=== PATIENT | male | born 1970 | race Caucasian/White ===

== ENCOUNTER 2020-05-27 19:50 | Inpatient (IN) ==
--- OUTSIDE RECORDS SUMMARY | 2020-05-27 19:53 | External Medical Summary | Continuity of Care Document ---
:1970 Author Name Darling You, Provider Address Unavailable Unavailable , Care Team Providers Name Role Phone Unavailable Unavailable Unavailable PCP, UNKNOWN Unavailable Unavailable Problems Active medical history not documented Allergies and Adverse Reactions Allergy history not documented Medications Medications not documented Procedures Procedures not documented Immunizations Immunizations not documented Plan of Treatment Planned Observations Planned Goals not documented Results No Known Results Results not documented
[2020-05-27] MEDS ORDERED: SODIUM CHLORIDE 0.9% 1000ML 1,000 ML IV STA (20:28)
--- NOTE | 2020-05-27 20:47 | Emergency Department Note ---
History of Present Illness General Chief complaint: Illness Stated complaint: COVID Time Seen by Provider: 05/27/20 20:19 Source: patient Mode of arrival: ambulatory Limitations: no limitations History of Present Illness Maximum Pain Intensity: 0 This patient comes in after having worsening of Covid type symptoms. He was diagnosed at [facility] in [place] this past Saturday his symptoms started 1 week ago. He started with low-grade temperature and diarrhea still has some diarrhea. He did have some respiratory symptoms but got better then got worse today after he had a coughing spell. He was mildly hypoxemic in triage with O2 sat of 89% he has no underlying illnesses otherwise or lung disease. He is not sure he has been keeping up with his fluids. He has no chest pain. No trauma or injury. Home Medications Medication Instructions Recorded Confirmed Type benzonatate 100 mg PO TID PRN 05/27/20 05/27/20 History Allergies Allergy/AdvReac Type Severity Reaction Status Date / Time No Known Allergies Allergy Verified 05/27/20 21:33 Past Med/Surg History Social History Smoking Status: Never smoker Feels Safe at Home: Yes Immunizations: Past medical historydenies pulmonary disease or diabetes or other lung problems or chronic medical problems social history does not smoke Review of Systems A total of 10 systems reviewed and were otherwise negative Physical Exam Vital Signs Vital Signs - 24 hr 05/27/20 19:53 05/27/20 20:54 05/27/20 21:00 Temperature 36.9 C Temperature Source Temporal Artery Scan Pulse Rate 88 77 76 Pulse Rate from SpO2 Sensor 77 76 Respiratory Rate 20 21 21 Blood Pressure 133/86 Blood Pressure Mean 101 Pulse Oximetry 89 L 92 92 Oxygen Delivery Method Room Air Room Air Oxygen Flow Rate Sepsis Recent Fever Within 48 Hours No Sepsis New/Unexplained Change in Mental Status N/A Sepsis Action Taken by Nursing No Action Required 05/27/20 21:10 05/27/20 21:20 05/27/20 21:30 Temperature Temperature Source Pulse Rate 75 74 88 Pulse Rate from SpO2 Sensor 77 75 88 Respiratory Rate 23 23 Blood Pressure 154/100 H Blood Pressure Mean 118 Pulse Oximetry 92 93 Oxygen Delivery Method Oxygen Flow Rate Sepsis Recent Fever Within 48 Hours Sepsis New/Unexplained Change in Mental Status Sepsis Action Taken by Nursing 05/27/20 21:31 05/27/20 21:40 05/27/20 21:50 Temperature Temperature Source Pulse Rate 83 78 83 Pulse Rate from SpO2 Sensor 84 79 83 Respiratory Rate 23 19 22 Blood Pressure Blood Pressure Mean Pulse Oximetry 90 93 93 Oxygen Delivery Method Oxygen Flow Rate Sepsis Recent Fever Within 48 Hours Sepsis New/Unexplained Change in Mental Status Sepsis Action Taken by Nursing 05/27/20 22:00 05/27/20 22:10 05/27/20 22:20 Temperature Temperature Source Pulse Rate 82 80 80 Pulse Rate from SpO2 Sensor 82 80 79 Respiratory Rate 24 27 H Blood Pressure Blood Pressure Mean Pulse Oximetry 92 93 94 Oxygen Delivery Method Oxygen Flow Rate Sepsis Recent Fever Within 48 Hours Sepsis New/Unexplained Change in Mental Status Sepsis Action Taken by Nursing 05/27/20 22:30 05/27/20 22:40 05/27/20 22:50 Temperature Temperature Source Pulse Rate 89 86 85 Pulse Rate from SpO2 Sensor 89 85 86 Respiratory Rate 21 24 25 H Blood Pressure Blood Pressure Mean Pulse Oximetry 95 93 93 Oxygen Delivery Method Oxygen Flow Rate Sepsis Recent Fever Within 48 Hours Sepsis New/Unexplained Change in Mental Status Sepsis Action Taken by Nursing 05/27/20 22:52 05/27/20 23:00 05/27/20 23:01 Temperature Temperature Source Pulse Rate 84 80 80 Pulse Rate from SpO2 Sensor 84 80 79 Respiratory Rate 22 21 20 Blood Pressure 129/76 140/85 Blood Pressure Mean 93 103 Pulse Oximetry 92 94 94 Oxygen Delivery Method Nasal Cannula Nasal Cannula Oxygen Flow Rate 2 2 Sepsis Recent Fever Within 48 Hours Sepsis New/Unexplained Change in Mental Status Sepsis Action Taken by Nursing 05/27/20 23:30 05/27/20 23:50 Temperature Temperature Source Pulse Rate 84 86 Pulse Rate from SpO2 Sensor 84 83 Respiratory Rate 25 H 23 Blood Pressure 132/72 Blood Pressure Mean 92 Pulse Oximetry 91 93 Oxygen Delivery Method Nasal Cannula Nasal Cannula Oxygen Flow Rate 2 3 Sepsis Recent Fever Within 48 Hours Sepsis New/Unexplained Change in Mental Status Sepsis Action Taken by Nursing General: Well developed well nourished middle-age male who appears in no acute distress, breathing comfortably on room air. Normal speech HEENT: Normal cephalic atraumatic. Pupils are equal round and reactive to light. Extraocular movements are intact. Oropharynx is pink with moist mucous membranes. No swelling of the mouth lips or tongue. Neck: Supple with a midline trachea. No meningeal signs or stiffness, no JVD or bruits. No Stridor. Chest: Clear to auscultation bilaterally. No wheezes or rhonchi. No increased work of breathing. Heart: Regular rate and rhythm without murmurs or gallops. Abdomen: Soft nontender, nondistended without rebound guarding or rigidity. Extremities: No cyanosis clubbing or edema. No calf tenderness or assymetry Spine/Back. Non tender to palpation. No CVA tenderness Skin: Good turgor without rashes. Neurologic exam: Cranial nerves two through 12 are intact. Motor and sensation are intact and symmetrical throughout. Course Administered Medications Lactated Ringer's (Lr) 1,000 mls @ 200 mls/hr IV .Q5H ONE Stop: 05/28/20 03:51 Last Admin: 05/27/20 23:48 Dose: 200 mls/hr Documented by: [id number] Discontinued Medications Albuterol (Albuterol Hfa 8 Gm Inhaler) 2 puffs INH NOW ONE Stop: 05/27/20 22:51 Last Admin: 05/27/20 23:46 Dose: 2 puffs Documented by: [id number] Sodium Chloride (Nss 1000ml) 1,000 mls @ 999 mls/hr IV .Q1H1M STA Stop: 05/27/20 21:28 Last Infusion: 05/27/20 22:56 Dose: 0 mls/hr Documented by: [id number] Admin: 05/27/20 21:02 Dose: 999 mls/hr Documented by: [id number] Dexamethasone 6 mg/ Syringe 1.5 mls @ 1 mls/min IV NOW STA Stop: 05/27/20 22:34 Last Admin: 05/27/20 22:51 Dose: 1 mls/min Documented by: [id number] Medical Decision Making Differential Diagnosis Covid, hypoxemia, dehydration, cardiac disease, arrhythmia, CHF, pneumothorax, PE Medical Records Attestation: I reviewed the patient's medical records. Home Medications Current Medication List: was personally reviewed by me Laboratory Data Attestation: I reviewed the patient's lab results. Result diagrams: 05/27/20 20:52 05/27/20 20:52 Lab Results 05/27/20 05/27/20 05/27/20 Range/Units 20:52 20:52 20:52 WBC 5.52 (4.8-10.8) K/uL RBC 5.03 (4.7-6.1) M/uL Hgb 15.4 (14.0-18.0) g/dL Hct 42.6 (42-52) % MCV 84.7 (80-100) fL MCH 30.6 (25-34) pg MCHC 36.2 H (32-36) g/dL RDW Std Deviation 40.7 (36.4-46.3) fL RDW Coeff of Samir 13.1 (11.5-14.5) % Plt Count 142 (130-400) K/uL MPV 10.0 (7.4-10.4) fL Immature Gran % (Auto) 0.4 % Neut % (Auto) 73.5 % Lymph % (Auto) 14.3 % [place] % (Auto) 11.6 % Eos % (Auto) 0.0 % Baso % (Auto) 0.2 % Neut # (Auto) 4.06 (1.4-6.5) K/uL Lymph # (Auto) 0.79 L (1.2-3.4) K/uL [place] # (Auto) 0.64 H (0.11-0.59) K/uL Eos # (Auto) 0.00 (0-0.5) K/uL Baso # (Auto) 0.01 (0-0.2) K/uL Immature Gran # (Auto) 0.02 (0.00-0.02) K/uL D-Dimer 390 (0-500) ug/L FEU ABG pH (7.35-7.45) ABG pCO2 (35-46) mmHg ABG pO2 (80-95) mmHg ABG HCO3 (19-24) mmol/L ABG O2 Saturation (90-95) % ABG Base Excess (-9-1.8) mEq/L Davi Test (Pos) Barometric Pressure mm/Hg Oxygen Given Sodium 135 L (136-145) mmol/L Potassium 3.5 (3.5-5.1) mmol/L Chloride 103 (98-107) mmol/L Carbon Dioxide 26 (21-32) mmol/L Anion Gap 6.0 (3-11) BUN 20 H (7-18) mg/dl Creatinine 1.32 (0.6-1.4) mg/dl Est Cr Clr Drug Dosing 77.4 ml/min Est GFR ( Amer) 73.9 Est GFR (Non-Af Amer) 63.8 BUN/Creatinine Ratio 15.1 (10-20) Glucose 138 H (70-99) mg/dl Calcium 8.3 L (8.5-10.1) mg/dl Magnesium 2.1 (1.8-2.4) mg/dl Total Bilirubin 0.5 (0.2-1) mg/dl AST 96 H (15-37) U/L ALT 109 H (12-78) U/L Alkaline Phosphatase 67 (45-117) U/L Troponin I < 0.015 (0-0.045) ng/ml Total Protein 7.0 (6.4-8.2) gm/dl Albumin 3.2 L (3.4-5.0) gm/dl Globulin 3.8 (2.5-4.0) gm/dl Albumin/Globulin Ratio 0.8 L (0.9-2) Lipase 1308 H (73-393) U/L 05/27/20 Range/Units 23:35 WBC (4.8-10.8) K/uL RBC (4.7-6.1) M/uL Hgb (14.0-18.0) g/dL Hct (42-52) % MCV (80-100) fL MCH (25-34) pg MCHC (32-36) g/dL RDW Std Deviation (36.4-46.3) fL RDW Coeff of Samir (11.5-14.5) % Plt Count (130-400) K/uL MPV (7.4-10.4) fL Immature Gran % (Auto) % Neut % (Auto) % Lymph % (Auto) % [place] % (Auto) % Eos % (Auto) % Baso % (Auto) % Neut # (Auto) (1.4-6.5) K/uL Lymph # (Auto) (1.2-3.4) K/uL [place] # (Auto) (0.11-0.59) K/uL Eos # (Auto) (0-0.5) K/uL Baso # (Auto) (0-0.2) K/uL Immature Gran # (Auto) (0.00-0.02) K/uL D-Dimer (0-500) ug/L FEU ABG pH 7.47 H (7.35-7.45) ABG pCO2 32 L (35-46) mmHg ABG pO2 58 L (80-95) mmHg ABG HCO3 23 (19-24) mmol/L ABG O2 Saturation 92.0 (90-95) % ABG Base Excess 0.2 (-9-1.8) mEq/L Davi Test POS (Pos) Barometric Pressure 734.3 mm/Hg Oxygen Given 2 L Sodium (136-145) mmol/L Potassium (3.5-5.1) mmol/L Chloride (98-107) mmol/L Carbon Dioxide (21-32) mmol/L Anion Gap (3-11) BUN (7-18) mg/dl Creatinine (0.6-1.4) mg/dl Est Cr Clr Drug Dosing ml/min Est GFR ( Amer) Est GFR (Non-Af Amer) BUN/Creatinine Ratio (10-20) Glucose (70-99) mg/dl Calcium (8.5-10.1) mg/dl Magnesium (1.8-2.4) mg/dl Total Bilirubin (0.2-1) mg/dl AST (15-37) U/L ALT (12-78) U/L Alkaline Phosphatase (45-117) U/L Troponin I (0-0.045) ng/ml Total Protein (6.4-8.2) gm/dl Albumin (3.4-5.0) gm/dl Globulin (2.5-4.0) gm/dl Albumin/Globulin Ratio (0.9-2) Lipase (73-393) U/L Imaging Data Attestation: I personally reviewed and interpreted this imaging study as follows: My Impression: Chest x-raydiffuse bilateral infiltrates consistent with bilateral pneumonia/Covid ECG Data Attestation: I personally reviewed and interpreted this ECG as follows: Indication: + SOB/dyspnea and + weakness Rate (beats per minute): 75 Rhythm: + normal sinus ECG Intervals/blocks: + IVCD (Nonspecific interventricular conduction delay with slightly prolonged QRS), + Normal QT and + Normal [place] ECG [place]: + Normal ECG ST segments: + Normal ST segments ECG Findings: no PACs and no PVCs Comparison ECG Date: no prior available MDM Narrative This patient comes in as described above. He was placed monitor in room C5. Given the fact that he does have Covid he was placed on respiratory isolation. Extensive work-up was done. IV access was established and blood work was obtained. Chest x-ray was obtained as well as EKG. He was placed on a teletypesetter monitor. He was hydrated with 1 L IV normal saline bolus. Given his hypoxemia and diagnosis of Covid, he was given Decadron 6 mg IV. His EKG does not suggest acute coronary syndrome or ischemic ischemia. His lipase is elevated at 1300 he has no belly pain at present or tenderness on exam. He is hypoxemic on room air at rest is 89-90 when he coughs he desaturates. Given this plus his extensive infiltrates on x-ray I do think he needs to be admitted/observed. He also has an elevated lipase. I have discussed the case with Dr. Alejandro who saw him in the emergency department for these measures. Giovanny, her telehealth case manager did print out his lab test from [facility] confirming that he does have Covid and this was documented in the chart. Continuous cardiac monitoring: Order was placed in EMR for continuous cardiac monitoring due to his hypoxemia and respiratory symptoms. I have personally interpreted the rhythm strip and it shows normal sinus rhythm with a pulse of 85. Impression & Plan COVID-19, Hypoxemia, Elevated lipase, SOB (shortness of breath), Cough Discharge Plan Visit Data Chief Complaint: Illness Stated Complaint: COVID ED Provider: Gregorio Holcomb Discharge Problem: COVID-19, Hypoxemia, Elevated lipase, SOB (shortness of breath), Cough Forms Stand Alone Forms: My [facility] Prescriptions Prescriptions: No Action benzonatate 100 mg capsule 100 mg PO TID PRN (Reason: Cough) RF: 0
[2020-05-27 21:07] LABS: Basophils # (auto) 0.01 K/uL (0-0.2); Basophils % (auto) 0.2 %; Hematocrit (blood only) 42.6 % (42-52); Hemoglobin 15.4 g/dL (14.0-18.0); Immature Granulocytes # (auto) 0.02 K/uL (0.00-0.02); Immature Granulocytes % (auto) 0.4 %; Lymphocytes # (auto) 0.79 K/uL (1.2-3.4); Lymphocytes % (auto) 14.3 %; Mean Corpuscular Hemoglobin 30.6 pg (25-34); Mean Corpuscular Hgb Conc 36.2 g/dL (32-36); Mean Corpuscular Volume 84.7 fL (80-100); Monocytes # (auto) 0.64 K/uL (0.11-0.59); Monocytes % (auto) 11.6 %; Neutrophils # (auto) 4.06 K/uL (1.4-6.5); Neutrophils % (auto) 73.5 %; Platelet Count 142 K/uL (130-400); RDW Coefficient of Variation 13.1 % (11.5-14.5); RDW Standard Deviation 40.7 fL (36.4-46.3); Red Blood Count 5.03 M/uL (4.7-6.1); White Blood Count 5.52 K/uL (4.8-10.8)
[2020-05-27 21:18] LABS: D Dimer 390 ug/L FEU (0-500)
[2020-05-27 21:25] LABS: Alanine Aminotransferase 109 U/L (12-78); Albumin Level 3.2 gm/dl (3.4-5.0); Aspartate Aminotransferase 96 U/L (15-37); BUN Creatinine Ratio 15.1 (10-20); Blood Urea Nitrogen 20 mg/dl (7-18); Calcium 8.3 mg/dl (8.5-10.1); Carbon Dioxide 26 mmol/L (21-32); Chloride 103 mmol/L (98-107); Creatinine Clr Calc Pharmacy 77.4 ml/min; Est GFR (African American) 73.9; Est GFR (Non-African American) 63.8; Glucose 138 mg/dl (70-99); Lipase 1308 U/L (73-393); Potassium 3.5 mmol/L (3.5-5.1); Sodium 135 mmol/L (136-145)
[2020-05-27 21:30] LABS: Albumin Globulin Ratio 0.8 (0.9-2); Alkaline Phosphatase 67 U/L (45-117); Bilirubin,Total 0.5 mg/dl (0.2-1); Globulin 3.8 gm/dl (2.5-4.0); Troponin I < 0.015 ng/ml (0-0.045)
--- NOTE | 2020-05-27 21:42 | XRay Report ---
XR chest 1V portable HISTORY: 49 years-old Male Chest Pain acute atypical chest pain. COVID Positive. COMPARISON: None TECHNIQUE: Portable AP view of the chest FINDINGS: Cardiac silhouette is enlarged. Mixed interstitial and alveolar opacities, left greater than right. N o pneumothorax or large pleural effusion. Bones appear grossly intact. IMPRESSION: 1. Left greater than right mixed interstitial and alveolar opacities suggests multifocal pneumonia. 2. Cardiomegaly. ACT 112: Negative or not required by law. The above report was generated using voice recognition software. It may contain grammatical, syntax o r spelling errors. Electronically signed by: Elkin Gerardo M.D. 05/27/2020 9:40 PM
[2020-05-27] MEDS ORDERED: dexAMETHasone 6 MG in SYRINGE 0 ML IV STA (22:33)
[2020-05-27] MEDS ORDERED: ALBUTEROL HFA 8 GM INHALER INH ONE (22:50)
[2020-05-27] MEDS ORDERED: LACTATED RINGER'S 1,000 ML IV ONE (22:52)
[2020-05-27 23:01] LABS: Magnesium 2.1 mg/dl (1.8-2.4)
[2020-05-27 23:48] LABS: Allen Test POS (Pos); Base Excess ABG 0.2 mEq/L (-9-1.8); HCO3 ABG 23 mmol/L (19-24); PCO2 ABG 32 mmHg (35-46); PO2 ABG 58 mmHg (80-95); pH ABG 7.47 (7.35-7.45)
--- NOTE | 2020-05-27 23:48 | History & Physical Report ---
Date of Service May 27, 2020 Assessment & Plan (1) Acute hypoxemic respiratory failure: Secondary to severe COVID-19 pneumonia situational hypertension Possible chronic BP elevation given cardiomegaly on CXR Hyperlipasemia secondary to viral diarrheal illness Rule out C. difficile No pancreatitis on initial CT read Abnormal LFTs likely secondary to fatty liver disease Hyperglycemia rule out DM Medical telemetry Supplemental O2 Decadron Remdesivir first dose now. Monitor LFTs after initial dose and defer decision regarding subsequent dosing to AM provider. (Patient was counseled regarding potential adverse effects from Remdesivir therapy and provided with patient education sheet. Patient also agreeable to convalescent plasma if warranted. Verbal consent obtained for blood product administration.) Pulmonary consult if without improvement Monitor BP, initiate amlodipine if persistently elevated Stool C. difficile Check hemoglobin A1c DVT prophylaxis per Lovenox subcu Full code Text document was generated using [employer] voice recognition software. It may contain grammatical or spelling errors. Kindly contact undersigned for clarification of any documentation item in question. History of Present Illness Chief Complaint: Shortness of breath, Covid positive Primary Care Provider: Dr. Butler History obtained from patient and records. No significant medical history. 1 week history of fever, chills, central achy abdominal pain with watery diarrhea symptoms. Poor appetite. Symptoms later followed by dry cough symptoms without chest pain. 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 Outpatient COVID-19 test from 5 days ago turned out positive. Supportive management and isolation recommended by PCP. Patient noted worsening symptoms at home. O2 sats 80s upon arrival at the ER. Patient given Decadron at the ER. 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 Allergies Allergy/AdvReac Type Severity Reaction Status Date / Time No Known Allergies Allergy Verified 05/27/20 21:33 Home Medications Medication Instructions Recorded Confirmed Type benzonatate 100 mg PO TID PRN 05/27/20 05/27/20 History Past Med/Surg History Social History Smoking Status: Never smoker Hx Alcohol Use: No Hx Substance Use: No Preferred Language: [place] Beliefs That Will Affect Care: None Current Living Situation: Family Feels Safe at Home: Yes Safety Concerns: Feels Safe At This Time Assistive Devices: None Review of Systems Review of Systems: As per HPI, all 10 systems reviewed, all other ROS negative Physical Exam Physical Exam: GENERAL: Comfortable, pleasant, looks older than stated age, morbidly obese, no respiratory distress SKIN: Normal color, warm HEENT: Alopecia, pink palpebral conjunctivae, no ptosis, moist buccal mucosa, nasal cannula in place NECK : Supple, short neck, no tenderness CHEST : Decreased breath sounds, scattered crackles on the right, no tenderness HEART : RRR, no obvious murmurs ABDOMEN: Some distention, central abdominal tenderness EXTREMITIES : No LE swelling/tenderness, no other conspicuous deformities noted NEUROLOGIC : Coherent, no facial asymmetry, no other gross focality Results & Data Results & Data ([facility]) Vital Signs (Past 12 Hours) Vital Signs Temp Pulse Resp BP Pulse Ox 05/27/20 23:30 84 25 H 132/72 91 05/27/20 23:01 80 20 94 05/27/20 23:00 80 21 140/85 94 05/27/20 22:52 84 22 129/76 92 05/27/20 22:50 85 25 H 93 05/27/20 22:40 86 24 93 05/27/20 22:30 89 21 95 05/27/20 22:20 80 27 H 94 05/27/20 22:10 80 24 93 05/27/20 22:00 82 92 05/27/20 21:50 83 22 93 05/27/20 21:40 78 19 93 05/27/20 21:31 83 23 90 05/27/20 21:30 88 154/100 H 05/27/20 21:20 74 23 93 05/27/20 21:10 75 23 92 05/27/20 21:00 76 21 92 05/27/20 20:54 77 21 92 05/27/20 19:53 36.9 C 88 20 133/86 89 L Laboratory Results Laboratory Results WBC 5.52 K/uL (4.8-10.8) 05/27/20 20:52 RBC 5.03 M/uL (4.7-6.1) 05/27/20 20:52 Hgb 15.4 g/dL (14.0-18.0) 05/27/20 20:52 Hct 42.6 % (42-52) 05/27/20 20:52 MCV 84.7 fL (80-100) 05/27/20 20:52 MCH 30.6 pg (25-34) 05/27/20 20:52 MCHC 36.2 g/dL (32-36) H 05/27/20 20:52 RDW Std Deviation 40.7 fL (36.4-46.3) 05/27/20 20:52 RDW Coeff of Samir 13.1 % (11.5-14.5) 05/27/20 20:52 Plt Count 142 K/uL (130-400) 05/27/20 20:52 MPV 10.0 fL (7.4-10.4) 05/27/20 20:52 Immature Gran % (Auto) 0.4 % 05/27/20 20:52 Neut % (Auto) 73.5 % 05/27/20 20:52 Lymph % (Auto) 14.3 % 05/27/20 20:52 [place] % (Auto) 11.6 % 05/27/20 20:52 Eos % (Auto) 0.0 % 05/27/20 20:52 Baso % (Auto) 0.2 % 05/27/20 20:52 Neut # (Auto) 4.06 K/uL (1.4-6.5) 05/27/20 20:52 Lymph # (Auto) 0.79 K/uL (1.2-3.4) L 05/27/20 20:52 [place] # (Auto) 0.64 K/uL (0.11-0.59) H 05/27/20 20:52 Eos # (Auto) 0.00 K/uL (0-0.5) 05/27/20 20:52 Baso # (Auto) 0.01 K/uL (0-0.2) 05/27/20 20:52 Immature Gran # (Auto) 0.02 K/uL (0.00-0.02) 05/27/20 20:52 D-Dimer 390 ug/L FEU (0-500) 05/27/20 20:52 Sodium 135 mmol/L (136-145) L 05/27/20 20:52 Potassium 3.5 mmol/L (3.5-5.1) 05/27/20 20:52 Chloride 103 mmol/L (98-107) 03/26/21 20:52 Carbon Dioxide 26 mmol/L (21-32) 05/27/20 20:52 Anion Gap 6.0 (3-11) 05/27/20 20:52 BUN 20 mg/dl (7-18) H 05/27/20 20:52 Creatinine 1.32 mg/dl (0.6-1.4) 05/27/20 20:52 Est Cr Clr Drug Dosing 77.4 ml/min 05/27/20 20:52 Est GFR ( Amer) 73.9 05/27/20 20:52 Est GFR (Non-Af Amer) 63.8 05/27/20 20:52 BUN/Creatinine Ratio 15.1 (10-20) 05/27/20 20:52 Glucose 138 mg/dl (70-99) H 05/27/20 20:52 Calcium 8.3 mg/dl (8.5-10.1) L 05/27/20 20:52 Magnesium 2.1 mg/dl (1.8-2.4) 05/27/20 20:52 Total Bilirubin 0.5 mg/dl (0.2-1) 05/27/20 20:52 AST 96 U/L (15-37) H 05/27/20 20:52 ALT 109 U/L (12-78) H 05/27/20 20:52 Alkaline Phosphatase 67 U/L (45-117) 05/27/20 20:52 Troponin I < 0.015 ng/ml (0-0.045) 05/27/20 20:52 Total Protein 7.0 gm/dl (6.4-8.2) 05/27/20 20:52 Albumin 3.2 gm/dl (3.4-5.0) L 05/27/20 20:52 Globulin 3.8 gm/dl (2.5-4.0) 05/27/20 20:52 Albumin/Globulin Ratio 0.8 (0.9-2) L 05/27/20 20:52 Lipase 1308 U/L (73-393) H 05/27/20 20:52 Diagnostic Findings Chest x-ray : 1. Left greater than right mixed interstitial and alveolar opacities suggests multifocal pneumonia. 2. Cardiomegaly. EKG as per my interpretation : Rate 75, NSR, normal axis, incomplete RBBB, no ischemia
[2020-05-28] MEDS ORDERED: OPTIRAY 320 100ml IV ONE (00:27)
[2020-05-28] MEDS ORDERED: BENZONATATE 100 MG CAPSULE PO PRN (00:36)
[2020-05-28] MEDS ORDERED: ACETAMINOPHEN 325 MG TAB PO PRN (00:36)
[2020-05-28] MEDS ORDERED: LORazepam 0.5 MG/1 ML VIAL IV PRN (00:36)
[2020-05-28] MEDS ORDERED: REMDESIVIR 200 MG in SODIUM CHLORIDE 0.9% 210 ML IV STA (02:37)
[2020-05-28] MEDS ORDERED: SODIUM CHLORIDE 0.9% 10ML FLUSH IV SCH (04:30)
[2020-05-28] MEDS ORDERED: guaiFENesin/CODEINE 100MG/10MG 5ML UDC PO STA (06:04)
[2020-05-28] MEDS ORDERED: dexAMETHasone 6 MG in SYRINGE 0 ML IV SCH ×2 (06:05→09:00)
[2020-05-28 06:22] LABS: Hematocrit (blood only) 40.1 % (42-52); Hemoglobin 14.2 g/dL (14.0-18.0); Immature Granulocytes # (auto) 0.02 K/uL (0.00-0.02); Immature Granulocytes % (auto) 0.7 %; Lymphocytes # (auto) 0.82 K/uL (1.2-3.4); Lymphocytes % (auto) 27.5 %; Mean Corpuscular Hgb Conc 35.4 g/dL (32-36); Mean Corpuscular Volume 84.6 fL (80-100); Monocytes % (auto) 6.7 %; Neutrophils # (auto) 1.94 K/uL (1.4-6.5); Neutrophils % (auto) 65.1 %; Platelet Count 158 K/uL (130-400); RDW Coefficient of Variation 13.1 % (11.5-14.5); RDW Standard Deviation 40.7 fL (36.4-46.3); Red Blood Count 4.74 M/uL (4.7-6.1); White Blood Count 2.98 K/uL (4.8-10.8)
[2020-05-28] MEDS: guaiFENesin 600 MG TABCR PO SCH ×2 (06:25→19:56)
[2020-05-28] MEDS: ALBUTEROL HFA 8 GM INHALER INH SCH ×4 (06:26→19:13)
[2020-05-28 06:50] LABS: Albumin Level 2.6 gm/dl (3.4-5.0); Creatinine Clr Calc Pharmacy 88.6 ml/min; Est GFR (African American) 86.4; Est GFR (Non-African American) 74.6; Potassium 3.4 mmol/L (3.5-5.1)
[2020-05-28 06:53] LABS: Albumin Globulin Ratio 0.7 (0.9-2); Bilirubin,Total 0.4 mg/dl (0.2-1); C Reactive Protein 7.12 mg/dl (0-0.29); Ferritin 1083.5 ng/ml (8-388); Globulin 3.8 gm/dl (2.5-4.0); Total Protein 6.4 gm/dl (6.4-8.2)
[2020-05-28 06:56] LABS: Base Excess ABG 0.4 mEq/L (-9-1.8); HCO3 ABG 23 mmol/L (19-24); PCO2 ABG 32 mmHg (35-46); PO2 ABG 69 mmHg (80-95); pH ABG 7.47 (7.35-7.45)
[2020-05-28 06:57] LABS: Allen Test Pos (Pos)
[2020-05-28] MEDS ORDERED: ALBUTEROL HFA 8 GM INHALER INH SCH (07:00)
[2020-05-28 07:20] LABS: Estimated Average Glucose 154 mg/dl
--- NOTE | 2020-05-28 07:42 | CT Scan Report ---
ABDOMEN AND PELVIS CT WITH IV CONTRAST CT DOSE: 1408.42 mGy.cm HISTORY: Diffuse abdominal pain. Covid positive. TECHNIQUE: Multiaxial CT images of the abdomen and pelvis were performed following the use of intrave nous contrast. A dose lowering technique was utilized adhering to the principles of ALARA. COMPARISON STUDY: None. FINDINGS: Patchy bibasilar airspace opacities consistent with a viral pneumonia. No pneumoperitoneum. No pneumatosis. No fractures within the visualized osseous structures. Hepatic steatosis. The gallbl adder, spleen, adrenal glands, pancreas, and right kidney are unremarkable. There is a punctate nonob structing stone within the lower pole the left kidney. No hydronephrosis. No retroperitoneal lymphade nopathy. Normal bladder. No bowel wall thickening or obstruction. Fluid-filled colon consistent with a diarrheal illness/gastroenteritis. Normal appendix. IMPRESSION: 1. Bibasilar patchy airspace opacities consistent with a viral pneumonia. 2. Left-sided nephrolithiasis. No ureteral stones. No hydronephrosis. 3. Fluid-filled colon. This can be seen in the setting of a gastroenteritis/diarrheal illness. 4. No bowel wall thickening or obstruction. ACT 112: Negative or not required by law. Electronically signed by: Jamey Martinez M.D. 05/28/2020 7:41 AM
--- NOTE | 2020-05-28 07:45 | Hospitalist Progress Note ---
Date of Service May 28, 2020 Assessment & Plan (1) Acute hypoxemic respiratory failure: Secondary to severe COVID-19 pneumonia Hypertension Possible chronic BP elevation given cardiomegaly on CXR Elevated Lipase secondary to viral diarrheal illness Rule out C. difficile No pancreatitis on initial CT read Abnormal LFTs likely secondary to fatty liver disease Hyperglycemia rule out DM Continue telemetry Supplemental O2 on 6L Decadron Remdesivir. Monitor LFTs after initial dose and defer decision regarding subsequent dosing to AM provider. (Patient was counseled regarding potential adverse effects from Remdesivir therapy and provided with patient education sheet. Patient also agreeable to convalescent plasma if warranted. Verbal consent obtained for blood product administration.) Pulmonary consult if without improvement Monitor BP, initiate amlodipine if persistently elevated Stool C. difficile Check hemoglobin A1c DVT prophylaxis per Lovenox subcu Full code Labs Checked ROS-No Headache, No Visual Changes, No Nausea, No Vomiting, No Fever, No Chills, No Neck Pain or Stiffness, No Chest Pain, No Palpitations, No SOB, No BEAN, No Cough, No Sputum, No Wheezing, No Abdominal Pain, No Diarrhea, No Hematemesis, No Hemoptysis, No Unexpected Weight Loss, No Flank pain, No Melena, No Hematochezia, No Frequency, No Urgency, No Burning, No Hematuria, No Rashes, No Diaphoresis. Appetite is Normal Physical Exam Gen-AAO x 3, NAD, febrile Head-NCAT, EOMI, PERRLA, Anicteric Sclera, No Posterior Pharyngeal Erythema Neck-Supple, No JVD, No Thyromegaly, No Masses, No LAD, No Bruits Lungs-Clear to Auscultation Bilaterally, No Rales, No Rhonchi, No Wheezing, No Crepitus Chest-No S4, +S1, +S2, No S3, No Murmurs, No Rubs, No Gallops, No Ectopy Abdomen-Soft, Bowel Sounds Present, Non Tender, Non Distended, No Hepatomegaly, No Splenomegaly, No Palpable Masses, No Rebound, No Rigidity, No Guarding Musculoskeletal-Full Range of Motion Bilaterally, No CVAT Extremities-No Cyanosis, No Clubbing, No Edema Nuero-Cranial Nerves II-XII grossly intact, Motor WNL, DTRs WNL, Strength WNL, Non Focal Psych-Normal Mood Admission and Anticipated Discharge Date Admission Date: May 27, 2020 Results & Data Results & Data ([facility]) Vital Signs (Past 12 Hours) Vital Signs Temp Pulse Pulse Resp BP BP Pulse Ox 05/28/20 07:40 37.4 C 83 29 H 126/70 93 05/28/20 06:32 05/28/20 06:00 05/28/20 03:02 37.6 C H 74 19 134/67 93 05/28/20 00:54 05/28/20 00:35 38.7 C H 86 23 151/78 H 91 05/28/20 00:00 81 26 H 153/91 H 93 05/27/20 23:50 86 23 93 05/27/20 23:30 84 25 H 132/72 91 05/27/20 23:01 80 20 94 05/27/20 23:00 80 21 140/85 94 05/27/20 22:52 84 22 129/76 92 05/27/20 22:50 85 25 H 93 05/27/20 22:40 86 24 93 05/27/20 22:30 89 21 95 05/27/20 22:20 80 27 H 94 05/27/20 22:10 80 24 93 05/27/20 22:00 82 92 05/27/20 21:50 83 22 93 05/27/20 21:40 78 19 93 05/27/20 21:31 83 23 90 05/27/20 21:30 88 154/100 H 05/27/20 21:20 74 23 93 05/27/20 21:10 75 23 92 05/27/20 21:00 76 21 92 05/27/20 20:54 77 21 92 05/27/20 19:53 36.9 C 88 20 133/86 89 L Pulse Ox 05/28/20 07:40 05/28/20 06:32 90 05/28/20 06:00 88 L 05/28/20 03:02 05/28/20 00:54 91 05/28/20 00:35 05/28/20 00:00 05/27/20 23:50 05/27/20 23:30 05/27/20 23:01 05/27/20 23:00 05/27/20 22:52 05/27/20 22:50 05/27/20 22:40 05/27/20 22:30 05/27/20 22:20 05/27/20 22:10 05/27/20 22:00 05/27/20 21:50 05/27/20 21:40 05/27/20 21:31 05/27/20 21:30 05/27/20 21:20 05/27/20 21:10 05/27/20 21:00 05/27/20 20:54 05/27/20 19:53
[2020-05-28] MEDS: ENOXAPARIN INJ 40 MG/0.4 ML SYR SQ SCH (08:05)
--- NOTE | 2020-05-28 08:30 | XRay Report ---
XR chest 1V portable HISTORY: Hypoxia. COMPARISON: 05/27/2020. FINDINGS: Bilateral perihilar airspace opacities persist and likely represent a pneumonia. There are low lung volumes. No pneumothorax. No pleural effusions. The heart is stable in size. IMPRESSION: No change in the bilateral perihilar airspace opacities consistent with a pneumonia. ACT 112: Negative or not required by law. Electronically signed by: Jamey Martinez M.D. 05/28/2020 8:29 AM
--- NOTE | 2020-05-28 13:21 | Electrocardiogram Report ---
Test Reason : Blood Pressure : / mmHG Vent. Rate : 075 BPM Atrial Rate : 075 BPM P-R Int : 132 ms QRS Dur : 126 ms QT Int : 406 ms P-R-T Axes : 016 -10 033 degrees QTc Int : 453 ms Normal sinus rhythm Non-specific intra-ventricular conduction block Abnormal ECG No previous ECGs available Confirmed by Jeremie Apple ([id number]) on 05/28/2020 1:20:28 PM Referred By: REFERRED SELF Confirmed By:Jeremie Apple
[2020-05-28] MEDS: guaiFENesin/DEXTROM SYRUP 200MG/20MG 10ML UDC PO PRN ×2 (15:00→21:06)
[2020-05-28] MEDS ORDERED: SODIUM CHLORIDE 0.65% NA SOLN 45 ML (OCEAN) ONE (16:24)
[2020-05-28] MEDS: REMDESIVIR 100mg: Days 2-5 IV SCH (19:56)
[2020-05-28] MEDS ORDERED: Nursing to Pharmacy Communication SCH (20:00)
[2020-05-28] MEDS: NSS 30mL Flush, Days 1-5 IV SCH (21:06)
[2020-05-29] MEDS: oxyCODONE HCL IR 5 MG TAB (IMMEDIATE RELEASE) PO PRN ×2 (03:58→11:34)
[2020-05-29] MEDS: guaiFENesin/DEXTROM SYRUP 200MG/20MG 10ML UDC PO PRN ×2 (03:59→11:35)
[2020-05-29] MEDS: ALBUTEROL HFA 8 GM INHALER INH SCH ×4 (07:10→19:14)
[2020-05-29 07:55] LABS: Hematocrit (blood only) 40.7 % (42-52); Hemoglobin 14.1 g/dL (14.0-18.0); Mean Corpuscular Hemoglobin 29.6 pg (25-34); Mean Corpuscular Hgb Conc 34.6 g/dL (32-36); Mean Corpuscular Volume 85.3 fL (80-100); Platelet Count 192 K/uL (130-400); Red Blood Count 4.77 M/uL (4.7-6.1); White Blood Count 8.16 K/uL (4.8-10.8)
[2020-05-29 08:05] LABS: HCO3 ABG 26 mmol/L (19-24); Oxygen Saturation ABG 92.6 % (90-95); PCO2 ABG 38 mmHg (35-46); PO2 ABG 63 mmHg (80-95); pH ABG 7.45 (7.35-7.45)
[2020-05-29 08:06] LABS: Allen Test Pos (Pos)
--- NOTE | 2020-05-29 08:09 | Pulmonary Consultation ---
Date of Consultation May 29, 2020 Assessment & Plan (1) Acute hypoxemic respiratory failure: Chest x-ray 05/28/2020 personally reviewed: Poor inspiratory effort, bilateral diffuse alveolar opacities appreciated, bilateral costophrenic and cardiophrenic angles are clean, increased cardiac silhouette Lower part of the lungs were also seen on CT abdomen pelvis done 05/28/2020: Peripheral consolidative process again appreciated which correlates with chest x-ray. No pleural effusion. ABG 05/29/2020: 7.45/38/63 on 80% FiO2 --Acute hypoxic respiratory failure Secondary to multilobar COVID-19 pneumonia CRP 7.12 Procalcitonin 0.23 COVID-19 +ve 05/24/2020, positive lymphopenia Continue with high flow to keep the oxygen saturation around 90-92% Alternate between BiPAP. I do think patient will benefit from BiPAP given morbid obesity. The patient is not able to tolerate BiPAP consider CPAP nightly I will increase Solu-Medrol to 20 mg IV for 5 days followed by 10 mg for 5 days, treating as DEXA ARDS protocol Start the patient on pantoprazole 40 mg twice daily Continue with incentive spirometry Guaifenesin along with flutter valve Awake proning will help the patient a lot. Continue with Lovenox 40 mg twice daily --Morbid obesity with probable FARRAH BiPAP nightly and as needed shortness of breath Plan: Keep the patient euvolemic to negative balance. Recommend strict in and out. Continue with remdesivir for total of 5 days Dexamethasone increased to 20 mg for 5 days followed by 10 mg for 5 days. Continue with incentive spirometry and flutter valve along with guaifenesin. Pulmonary will continue to follow. Please note the above document was generated using voice recognition software. It may contain grammatical, syntax or spelling errors.Any formal questions or concerns about the content, text or information contained within the body of this dictation should be directly addressed to the provider for clarification. (2) COVID-19: (3) Morbid obesity: (4) Pneumonia due to 2019 novel coronavirus: History of Present Illness Attending Physician: Asa Christian DO History of Present Illness 49-year-old male with no significant past medical history except for morbid obesity was admitted to the hospital with complaints of shortness of breath and dry cough. Patient's COVID-19 was positive approximately 5 days ago. Because of the worsening shortness of breath he was admitted. In the ED patient saturation was 80% on room air. At the time of examination patient was on 80% high flow, 30 L. Saturating 94%. He was not in any respiratory distress. He was talking in full sentences. I went down to 60% and increased FiO2 35L. Patient denied any chest pain, no headache, no dizziness. Patient does state that he usually gets really short of breath when he is having fits of cough. Is bringing up clear phlegm. Denies any hemoptysis. No nausea or vomiting. No dysuria. He did have diarrhea prior to coming to the hospital. Denies any history of sleep apnea. Does snore at night. Social history: Non-smoker, no illicit drug use, no history of asthma. Allergies Allergy/AdvReac Type Severity Reaction Status Date / Time No Known Allergies Allergy Verified 05/27/20 21:33 Home Medications Medication Instructions Recorded Confirmed Type benzonatate 100 mg PO TID PRN 05/27/20 05/27/20 History Patient History Social History Smoking Status: Never smoker Hx Alcohol Use: No Hx Substance Use: No Preferred Language: German Beliefs That Will Affect Care: None Current Living Situation: Family Feels Safe at Home: Yes Safety Concerns: Feels Safe At This Time Assistive Devices: Oxygen - Continuous Review of Systems Review of Systems: All systems reviewed & are unremarkable except as noted in HPI & below Physical Exam Physical Exam: Constitutional: No acute distress HEENT: EOMI, PERRLA Respiratory system: Decreased air entry bilaterally, no wheeze, no rhonchi, positive crackles bilaterally CVS: S1-S2 positive, no murmurs or gallops Abdomen: Soft, nontender, nondistended, positive bowel sounds x4, obese Extremities: +2 pulses bilaterally radialis/ dorsalis pedis, no cyanosis, no edema Neuro: Awake alert oriented x3 Psych: Normal mood and affect G/U: No Rogers Skin: no rashes, warm and dry Lymphatic: no cervical or axillary lymphadenopathy Results & Data Results & Data ([facility]) Vital Signs (Past 12 Hours) Vital Signs Temp Pulse Pulse Resp BP Pulse Ox 05/29/20 07:42 37.1 C 62 21 120/62 94 05/29/20 07:10 65 26 H 93 05/29/20 04:03 37.2 C 68 24 132/82 92 05/28/20 23:06 61 05/28/20 23:00 37.4 C 70 21 137/74 05/28/20 22:00 60 20 93 05/29/20 07:25 05/29/20 07:25 PG Care Time/CCT Total # of Minutes Spent Total Time Spent with Patient: Total time spent is greater than 50% in loss prevention coordinator rdination of care (as documented) at patient's floor/unit and/or counseling patient: Coding Level of Care Code 18939 Inpt Consult Level 4 Diagnoses Acute hypoxemic respiratory failure J96.01 COVID-19 U07.1 Morbid obesity E66.01 Pneumonia due to 2019 novel coronavirus U07.1; J12.82
[2020-05-29 08:33] LABS: BUN Creatinine Ratio 20.9 (10-20); Calcium 8.3 mg/dl (8.5-10.1); Creatinine Clr Calc Pharmacy 104.8 ml/min; Est GFR (Non-African American) 91.4; Potassium 3.6 mmol/L (3.5-5.1)
[2020-05-29] MEDS ORDERED: dexAMETHasone 20 MG in SYRINGE 0 ML IV SCH (09:00)
[2020-05-29] MEDS: guaiFENesin 600 MG TABCR PO SCH ×3 (09:12→20:53)
[2020-05-29] MEDS: PANTOprazole 40 MG TAB PO SCH ×2 (09:12→20:54)
[2020-05-29] MEDS: ENOXAPARIN INJ 40 MG/0.4 ML SYR SQ SCH (09:13)
[2020-05-29] MEDS: dexAMETHasone 20 MG in DEXTROSE 5% 25 ML IV SCH (09:13)
[2020-05-29] MEDS: REMDESIVIR 100mg: Days 2-5 IV SCH (19:27)
[2020-05-29] MEDS: NSS 30mL Flush, Days 1-5 IV SCH (20:56)
[2020-05-30] MEDS: guaiFENesin/DEXTROM SYRUP 200MG/20MG 10ML UDC PO PRN (06:33)
[2020-05-30 07:06] LABS: Hematocrit (blood only) 40.5 % (42-52); Hemoglobin 13.9 g/dL (14.0-18.0); Immature Granulocytes # (auto) 0.02 K/uL (0.00-0.02); Immature Granulocytes % (auto) 0.3 %; Lymphocytes # (auto) 0.88 K/uL (1.2-3.4); Lymphocytes % (auto) 12.9 %; Mean Corpuscular Hemoglobin 29.6 pg (25-34); Mean Corpuscular Hgb Conc 34.3 g/dL (32-36); Mean Corpuscular Volume 86.4 fL (80-100); Mean Platelet Volume 10.1 fL (7.4-10.4); Monocytes # (auto) 0.98 K/uL (0.11-0.59); Monocytes % (auto) 14.3 %; Neutrophils # (auto) 4.95 K/uL (1.4-6.5); Neutrophils % (auto) 72.5 %; Platelet Count 231 K/uL (130-400); RDW Coefficient of Variation 13.1 % (11.5-14.5); RDW Standard Deviation 41.6 fL (36.4-46.3); Red Blood Count 4.69 M/uL (4.7-6.1); White Blood Count 6.83 K/uL (4.8-10.8)
[2020-05-30] MEDS: ALBUTEROL HFA 8 GM INHALER INH SCH ×3 (07:26→15:48)
[2020-05-30 07:37] LABS: Albumin Level 2.5 gm/dl (3.4-5.0); BUN Creatinine Ratio 21.6 (10-20); Calcium 8.3 mg/dl (8.5-10.1); Creatinine Clr Calc Pharmacy 106.1 ml/min; Est GFR (African American) 107.3; Est GFR (Non-African American) 92.6
[2020-05-30 07:40] LABS: Albumin Globulin Ratio 0.7 (0.9-2); Bilirubin,Total 0.4 mg/dl (0.2-1); Globulin 3.6 gm/dl (2.5-4.0); Total Protein 6.1 gm/dl (6.4-8.2)
[2020-05-30] MEDS: guaiFENesin 600 MG TABCR PO SCH ×2 (08:39→20:50)
[2020-05-30] MEDS: ENOXAPARIN INJ 40 MG/0.4 ML SYR SQ SCH (08:40)
[2020-05-30] MEDS: dexAMETHasone 20 MG in DEXTROSE 5% 25 ML IV SCH (08:41)
[2020-05-30] MEDS: PANTOprazole 40 MG TAB PO SCH ×2 (08:42→20:50)
--- NOTE | 2020-05-30 08:53 | Hospitalist Progress Note ---
Date of Service May 30, 2020 Assessment & Plan (1) Acute hypoxemic respiratory failure: Secondary to severe COVID-19 pneumonia Hypertension Possible chronic BP elevation given cardiomegaly on CXR Elevated Lipase secondary to viral diarrheal illness Rule out C. difficile No pancreatitis on initial CT read Abnormal LFTs likely secondary to fatty liver disease Hyperglycemia rule out DM Continue telemetry On High flow BIPAP=CPAP Decadron Remdesivir. Monitor LFTs (Patient was counseled regarding potential adverse effects from Remdesivir therapy and provided with patient education sheet. Patient also agreeable to convalescent plasma if warranted. Verbal consent obtained for blood product administration.) Pulmonary on consult with adjustments in regimen made BP controlled Check hemoglobin A1c DVT prophylaxis Full code Labs Checked ROS-No Headache, No Visual Changes, No Nausea, No Vomiting, No Fever, No Chills, No Neck Pain or Stiffness, No Chest Pain, No Palpitations, + SOB, + BEAN, + Cough, + Sputum, No Wheezing, No Abdominal Pain, No Diarrhea, No Hematemesis, No Hemoptysis, No Unexpected Weight Loss, No Flank pain, No Melena, No Hematochezia, No Frequency, No Urgency, No Burning, No Hematuria, No Rashes, No Diaphoresis. Appetite is Normal Physical Exam Gen-AAO x 3, NAD, febrile Head-NCAT, EOMI, PERRLA, Anicteric Sclera, No Posterior Pharyngeal Erythema Neck-Supple, No JVD, No Thyromegaly, No Masses, No LAD, No Bruits Lungs-Clear to Auscultation Bilaterally, No Rales, No Rhonchi, No Wheezing, No Crepitus Chest-No S4, +S1, +S2, No S3, No Murmurs, No Rubs, No Gallops, No Ectopy Abdomen-Soft, Bowel Sounds Present, Non Tender, Non Distended, No Hepatomegaly, No Splenomegaly, No Palpable Masses, No Rebound, No Rigidity, No Guarding Musculoskeletal-Full Range of Motion Bilaterally, No CVAT Extremities-No Cyanosis, No Clubbing, No Edema Nuero-Cranial Nerves II-XII grossly intact, Motor WNL, DTRs WNL, Strength WNL, Non Focal Psych-Normal Mood Admission and Anticipated Discharge Date Admission Date: May 27, 2020 Results & Data Results & Data ([facility]) Vital Signs (Past 12 Hours) Vital Signs Temp Pulse Pulse Resp BP Pulse Ox 03/29/21 07:47 36.5 C 70 20 116/89 91 05/30/20 07:26 65 18 91 05/30/20 03:49 36.8 C 58 L 20 118/72 93 05/30/20 03:27 46 L 18 94 05/30/20 00:11 36.6 C 52 L 20 103/60 92 05/30/20 00:00 53 L 05/29/20 23:06 20 90
[2020-05-30] MEDS ORDERED: ALBUTEROL HFA 8 GM INHALER INH PRN (15:51)
--- NOTE | 2020-05-30 16:35 | Pulmonology Progress Note ---
Date of Service May 30, 2020 Assessment & Plan (1) Acute hypoxemic respiratory failure: 49-year-old male with a past medical history of morbid obesity presenting to the hospital due to shortness of breath related to COVID-19. He currently has significant hypoxemic respiratory failure secondary to COVID- 19. Continue with DEXA ARDS protocol with 20 mg Decadron for 5 days followed by 5 mg of Decadron for 5 days. Patient encouraged to continue with proning and ambulation in the room. We will likely have a prolonged hospitalization given the severity of his illness. Physical therapy and occupational therapy should be pursued. Pulmonary is available should questions or the need arise. Thank you for the consultation. (2) COVID-19: (3) Morbid obesity: (4) Pneumonia due to 2019 novel coronavirus: Admission and Anticipated Discharge Date Admission Date: May 27, 2020 Subjective Patient seen and examined this afternoon. He is sitting up in a chair. He is currently requiring 60% FiO2 and 35 L of oxygen via high flow nasal cannula. He denies any chest pain. He does have a nonproductive cough. He is feeling depressed about having to stay in the hospital for so long. Physical Exam Physical Exam: Constitutional: No acute distress HEENT: EOMI, PERRLA Respiratory system: Diminished lung sounds at the bases. No use of accessory muscles. CVS: S1-S2 positive, no murmurs or gallops Abdomen: Soft, nontender, nondistended, positive bowel sounds x4, obese Extremities: +2 pulses bilaterally radialis/ dorsalis pedis, no cyanosis, no edema Neuro: Awake alert oriented x3 Psych: Normal mood and affect G/U: No Rogers Skin: no rashes, warm and dry Lymphatic: no cervical or axillary lymphadenopathy Results & Data Results & Data ([facility]) Vital Signs (Past 12 Hours) Vital Signs Temp Pulse Resp BP BP Pulse Ox 05/30/20 15:49 64 18 91 05/30/20 15:39 98.8 F 62 17 136/78 93 05/30/20 12:39 99.0 F 68 20 130/87 92 05/30/20 11:20 65 18 93 05/30/20 07:47 97.7 F 70 20 116/89 91 05/30/20 07:26 65 18 91 I reviewed the vital signs, labs and imaging. PG Care Time/CCT Total # of Minutes Spent Total Time Spent with Patient: Total time spent is greater than 50% in coordination of care (as documented) at patient's floor/unit and/or counseling patient: Coding Level of Care Code 44099 Subseq Hosp Care Lvl 3 Diagnoses Acute hypoxemic respiratory failure J96.01 COVID-19 U07.1 Morbid obesity E66.01 Pneumonia due to 2019 novel coronavirus U07.1; J12.82
[2020-05-30] MEDS: REMDESIVIR 100mg: Days 2-5 IV SCH (19:26)
[2020-05-30] MEDS: NSS 30mL Flush, Days 1-5 IV SCH (20:51)
[2020-05-31 06:43] LABS: Hematocrit (blood only) 40.4 % (42-52); Mean Corpuscular Hemoglobin 29.4 pg (25-34); Mean Corpuscular Hgb Conc 34.7 g/dL (32-36); Mean Corpuscular Volume 84.9 fL (80-100); Mean Platelet Volume 9.6 fL (7.4-10.4); Platelet Count 294 K/uL (130-400); RDW Coefficient of Variation 12.8 % (11.5-14.5); RDW Standard Deviation 40.2 fL (36.4-46.3); Red Blood Count 4.76 M/uL (4.7-6.1); White Blood Count 8.23 K/uL (4.8-10.8)
[2020-05-31 07:19] LABS: BUN Creatinine Ratio 25.6 (10-20); Calcium 7.6 mg/dl (8.5-10.1); Creatinine Clr Calc Pharmacy 111.8 ml/min; Est GFR (African American) 114.4; Est GFR (Non-African American) 98.7; Potassium 4.1 mmol/L (3.5-5.1)
--- NOTE | 2020-05-31 07:26 | Hospitalist Progress Note ---
Date of Service May 31, 2020 Assessment & Plan (1) Acute hypoxemic respiratory failure: Secondary to severe COVID-19 pneumonia Hypertension Possible chronic BP elevation given cardiomegaly on CXR Elevated Lipase secondary to viral diarrheal illness Rule out C. difficile No pancreatitis on initial CT read Abnormal LFTs likely secondary to fatty liver disease Hyperglycemia rule out DM On High flow BIPAP/CPAP Decadron Remdesivir. Monitor LFTs (Patient was counseled regarding potential adverse effects from Remdesivir therapy and provided with patient education sheet. Patient also agreeable to convalescent plasma if warranted. Verbal consent obtained for blood product administration.) Pulmonary on consult with adjustments in regimen made BP controlled DVT prophylaxis Full code Labs Checked ROS-No Headache, No Visual Changes, No Nausea, No Vomiting, No Fever, No Chills, No Neck Pain or Stiffness, No Chest Pain, No Palpitations, + SOB, + BEAN, + Cough, + Sputum, No Wheezing, No Abdominal Pain, No Diarrhea, No Hematemesis, No Hemoptysis, No Unexpected Weight Loss, No Flank pain, No Melena, No Hematochezia, No Frequency, No Urgency, No Burning, No Hematuria, No Rashes, No Diaphoresis. Appetite is Normal Physical Exam Gen-AAO x 3, NAD, febrile Head-NCAT, EOMI, PERRLA, Anicteric Sclera, No Posterior Pharyngeal Erythema Neck-Supple, No JVD, No Thyromegaly, No Masses, No LAD, No Bruits Lungs-Clear to Auscultation Bilaterally, No Rales, No Rhonchi, No Wheezing, No Crepitus Chest-No S4, +S1, +S2, No S3, No Murmurs, No Rubs, No Gallops, No Ectopy Abdomen-Soft, Bowel Sounds Present, Non Tender, Non Distended, No Hepatomegaly, No Splenomegaly, No Palpable Masses, No Rebound, No Rigidity, No Guarding Musculoskeletal-Full Range of Motion Bilaterally, No CVAT Extremities-No Cyanosis, No Clubbing, No Edema Nuero-Cranial Nerves II-XII grossly intact, Motor WNL, DTRs WNL, Strength WNL, Non Focal Psych-Normal Mood Admission and Anticipated Discharge Date Admission Date: May 27, 2020 Results & Data Results & Data ([facility]) Vital Signs (Past 12 Hours) Vital Signs Temp Pulse Pulse Resp BP BP Pulse Ox 05/31/20 07:18 60 20 90 05/31/20 03:25 37.2 C 52 L 18 144/92 H 95 05/31/20 03:14 60 21 95 05/31/20 00:00 58 L 05/30/20 23:06 37.1 C 55 L 20 122/64 95 05/30/20 22:27 55 L 20 94
[2020-05-31] MEDS: oxyCODONE HCL IR 5 MG TAB (IMMEDIATE RELEASE) PO PRN (08:03)
[2020-05-31] MEDS: BENZONATATE 100 MG CAPSULE PO PRN ×2 (08:03→15:56)
[2020-05-31] MEDS: dexAMETHasone 20 MG in DEXTROSE 5% 25 ML IV SCH (08:04)
[2020-05-31] MEDS: ENOXAPARIN INJ 40 MG/0.4 ML SYR SQ SCH (08:05)
[2020-05-31] MEDS: PANTOprazole 40 MG TAB PO SCH ×2 (08:05→21:13)
[2020-05-31] MEDS: guaiFENesin 600 MG TABCR PO SCH ×2 (08:05→21:13)
[2020-05-31] MEDS: guaiFENesin/DEXTROM SYRUP 200MG/20MG 10ML UDC PO PRN ×2 (08:05→19:31)
[2020-05-31] MEDS ORDERED: GLUCOSE 40% GEL 15 GM TUBE PO PRN (12:48)
[2020-05-31] MEDS ORDERED: DEXTROSE 50% 50 ML SYRINGE IV PRN (12:48)
[2020-05-31] MEDS ORDERED: GLUCOSE 10 TABS/TUBE PO PRN (12:48)
[2020-05-31] MEDS ORDERED: GLUCAGON FOR INJ 1 MG VIAL SQ PRN (12:48)
[2020-05-31] MEDS ORDERED: CARBOHYDRATES FOR HYPOGLYCEMIA PO PRN (12:48)
[2020-05-31] MEDS ORDERED: PHARMACY GLYCEMIC MGMT CONSULT PRN (12:57)
[2020-05-31] MEDS ORDERED: INSULIN GLARGINE SOLOSTAR 100 UNITS/ML 3 ML PEN SC SCH (13:00)
[2020-05-31] MEDS ORDERED: INSULIN HUMAN NPH SC STA (13:48)
--- NOTE | 2020-05-31 14:00 | Pharmacy Report ---
Pharmacy Glycemic Short Note 2 - Date of Service May 31, 2020 - Glycemic Short BSG Results (Last 24 hours): 05/31/20 06:23 Glucose 204 H OUTPATIENT ANTIDIABETIC REGIMEN: * n/a (not using medications for DM) * A1c = 7 % 05/28/20 ASSESSMENT: * Patient admitted for severe COVID19 viral pneumonia * A1c checked this admission consistent with DM * GLU on AM chemistry consistent w/ DM vs stress / steroid induced hyperglycemia * Patient is currently ordered and tolerating a diet, plus high dose IV dexamethasone is ordered. * Will begin weight based NPH dosing to combat steroid induced hyperglycemia (~0.3units/kg initially), this will serve as the patient's daily basal dose. * Novolog will be ordered based upon weight and "high" stress calculation due to steroid use PLAN FOR INPATIENT GLYCEMIC CONTROL: * Basal insulin * NPH 35 units SQ (~0.3units/kg) x 1 STAT then QAM with IV dexamethasone * Bolus insulin * NovoLog per scale ACHS * Goal Range: Low 110 mg/dL - High 140 mg/dL * Correction Factor: 15 mg/dL/unit * Nutritional / Prandial insulin per carb ratio of 1 unit per 5 grams CHO consumed PLAN FOR DISCHARGE: * to be determined
[2020-05-31] MEDS: INSULIN ASPART 100 UNITS/ML 3 ML PEN SC SCH ×2 (17:59→21:56)
[2020-05-31] MEDS: REMDESIVIR 100mg: Days 2-5 IV SCH (19:43)
[2020-05-31] MEDS: NSS 30mL Flush, Days 1-5 IV SCH (21:11)
[2020-06-01] MEDS: guaiFENesin/DEXTROM SYRUP 200MG/20MG 10ML UDC PO PRN ×2 (03:45→08:30)
[2020-06-01 06:49] LABS: Hematocrit (blood only) 40.6 % (42-52); Hemoglobin 13.9 g/dL (14.0-18.0); Mean Corpuscular Hemoglobin 29.4 pg (25-34); Mean Corpuscular Hgb Conc 34.2 g/dL (32-36); Mean Corpuscular Volume 85.8 fL (80-100); Mean Platelet Volume 9.7 fL (7.4-10.4); Platelet Count 316 K/uL (130-400); RDW Coefficient of Variation 12.7 % (11.5-14.5); RDW Standard Deviation 40.1 fL (36.4-46.3); Red Blood Count 4.73 M/uL (4.7-6.1); White Blood Count 10.34 K/uL (4.8-10.8)
[2020-06-01 07:16] LABS: BUN Creatinine Ratio 26.1 (10-20); Calcium 7.6 mg/dl (8.5-10.1); Creatinine Clr Calc Pharmacy 111.8 ml/min; Est GFR (African American) 114.4; Est GFR (Non-African American) 98.7; Potassium 3.9 mmol/L (3.5-5.1)
[2020-06-01] MEDS: BENZONATATE 100 MG CAPSULE PO PRN ×2 (07:56→15:57)
[2020-06-01] MEDS: oxyCODONE HCL IR 5 MG TAB (IMMEDIATE RELEASE) PO PRN ×2 (07:56→15:57)
[2020-06-01] MEDS: guaiFENesin 600 MG TABCR PO SCH ×2 (08:30→21:38)
[2020-06-01] MEDS: dexAMETHasone 20 MG in DEXTROSE 5% 25 ML IV SCH (08:30)
[2020-06-01] MEDS: ENOXAPARIN INJ 40 MG/0.4 ML SYR SQ SCH (08:30)
[2020-06-01] MEDS: INSULIN ASPART 100 UNITS/ML 3 ML PEN SC SCH ×4 (08:31→21:27)
[2020-06-01] MEDS: INSULIN HUMAN NPH SC SCH (08:32)
[2020-06-01] MEDS: PANTOprazole 40 MG TAB PO SCH ×2 (08:33→21:38)
--- NOTE | 2020-06-01 08:36 | Hospitalist Progress Note ---
Date of Service June 01, 2020 Assessment & Plan (1) Acute hypoxemic respiratory failure: Secondary to severe COVID-19 pneumonia Hypertension Possible chronic BP elevation given cardiomegaly on CXR Elevated Lipase secondary to viral diarrheal illness Rule out C. difficile No pancreatitis on initial CT read Abnormal LFTs likely secondary to fatty liver disease Hyperglycemia On High-flow BIPAP/CPAP, O2 requirements are improving Continue Decadron Remdesivir completed 05/31. Monitor LFTs (Patient was counseled regarding potential adverse effects from Remdesivir therapy and provided with patient education sheet. Patient also agreeable to convalescent plasma if warranted. Verbal consent obtained for blood product administration.) Pulmonary on consult BP controlled DVT prophylaxis Full code Labs Checked ROS-No Headache, No Visual Changes, No Nausea, No Vomiting, No Fever, No Chills, No Neck Pain or Stiffness, No Chest Pain, No Palpitations, + SOB, + BEAN, + Cough, + Sputum, No Wheezing, No Abdominal Pain, No Diarrhea, No Hematemesis, No Hemoptysis, No Unexpected Weight Loss, No Flank pain, No Melena, No Hematochezia, No Frequency, No Urgency, No Burning, No Hematuria, No Rashes, No Diaphoresis. Appetite is Normal Physical Exam Gen-AAO x 3, NAD, febrile Head-NCAT, EOMI, PERRLA, Anicteric Sclera, No Posterior Pharyngeal Erythema Neck-Supple, No JVD, No Thyromegaly, No Masses, No LAD, No Bruits Lungs-Clear to Auscultation Bilaterally, No Rales, No Rhonchi, No Wheezing, No Crepitus Chest-No S4, +S1, +S2, No S3, No Murmurs, No Rubs, No Gallops, No Ectopy Abdomen-Soft, Bowel Sounds Present, Non Tender, Non Distended, No Hepatomegaly, No Splenomegaly, No Palpable Masses, No Rebound, No Rigidity, No Guarding Musculoskeletal-Full Range of Motion Bilaterally, No CVAT Extremities-No Cyanosis, No Clubbing, No Edema Nuero-Cranial Nerves II-XII grossly intact, Motor WNL, DTRs WNL, Strength WNL, Non Focal Psych-Normal Mood Admission and Anticipated Discharge Date Admission Date: May 27, 2020 Results & Data Results & Data ([facility]) Vital Signs (Past 12 Hours) Vital Signs Temp Pulse Pulse Resp BP Pulse Ox 06/01/20 08:19 54 L 20 94 06/01/20 07:48 37.0 C 59 L 16 127/83 92 06/01/20 05:25 53 L 14 94 06/01/20 04:35 36.5 C 52 L 14 123/67 91 06/01/20 00:00 52 L 05/31/20 23:53 45 L 15 91 05/31/20 22:44 36.7 C 87 18 141/82 H 90
[2020-06-01] MEDS ORDERED: INSULIN HUMAN NPH SC SCH (09:00)
--- NOTE | 2020-06-01 10:37 | Pharmacy Report ---
Pharmacy Glycemic Short Note 2 - Date of Service June 01, 2020 - Glycemic Short BSG Results (Last 24 hours): 05/31/20 05/31/20 06/01/20 17:25 20:23 06:07 Glucose 110 H POC Glucose 282 H 282 H 06/01/20 08:09 Glucose POC Glucose 103 H OUTPATIENT ANTIDIABETIC REGIMEN: * n/a (not using medications for DM) * A1c = 7 % 05/28/20 ASSESSMENT: 06/01 * 69 units SQ insulin administered over the last 24 hrs. * Initial BSG checked pre-dinner elevated to 282 and remained elevated HS. Patient had received steroids and not received basal or prandial insulin until the afternoon. Today's response to basal/bolus regimen should be more helpful for titration decisions. * Fasting BSG 103 this AM, this is after receiving 35 units NPH midday yesterday and 10 units correctional insulin at HS. * Will increase NPH dose to ~0.4units/kg to offset dexamethasone induced hyperglycemia * Will continue aggressive Novolog correction and prandial coverage today given observed insulin resistance during the day yesterday 05/31 * Patient admitted for severe COVID19 viral pneumonia * A1c checked this admission consistent with DM * GLU on AM chemistry consistent w/ DM vs stress / steroid induced hyperglycemia * Patient is currently ordered and tolerating a diet, plus high dose IV dexamethasone is ordered. * Will begin weight based NPH dosing to combat steroid induced hyperglycemia (~0.3units/kg initially), this will serve as the patient's daily basal dose. * Novolog will be ordered based upon weight and "high" stress calculation due to steroid use PLAN FOR INPATIENT GLYCEMIC CONTROL: * Basal insulin * NPH 45 units SQ (~0.4units/kg) Q AM with IV dexamethasone * Bolus insulin * NovoLog per scale ACHS * Goal Range: Low 110 mg/dL - High 140 mg/dL * Correction Factor: 12 mg/dL/unit * Nutritional / Prandial insulin per carb ratio of 1 unit per 3.5 grams CHO consumed PLAN FOR DISCHARGE: * to be determined
--- NOTE | 2020-06-02 06:47 | Hospitalist Progress Note ---
Date of Service June 02, 2020 Assessment & Plan (1) Acute hypoxemic respiratory failure: Secondary to severe COVID-19 pneumonia Hypertension Possible chronic BP elevation given cardiomegaly on CXR Elevated Lipase secondary to viral diarrheal illness Rule out C. difficile No pancreatitis on initial CT read Abnormal LFTs likely secondary to fatty liver disease Hyperglycemia On BIPAP at night now, off High flow, on 6 L Continue Decadron Sugars elevated Remdesivir completed 05/31. Monitor LFTs (Patient was counseled regarding potential adverse effects from Remdesivir therapy and provided with patient education sheet. Patient also agreeable to convalescent plasma if warranted. Verbal consent obtained for blood product administration.) Pulmonary on consult BP controlled DVT prophylaxis Full code Labs Checked ROS-No Headache, No Visual Changes, No Nausea, No Vomiting, No Fever, No Chills, No Neck Pain or Stiffness, No Chest Pain, No Palpitations, + SOB, + BEAN, + Cough, + Sputum, No Wheezing, No Abdominal Pain, No Diarrhea, No Hematemesis, No Hemoptysis, No Unexpected Weight Loss, No Flank pain, No Melena, No Hematochezia, No Frequency, No Urgency, No Burning, No Hematuria, No Rashes, No Diaphoresis. Appetite is Normal Physical Exam Gen-AAO x 3, NAD, febrile Head-NCAT, EOMI, PERRLA, Anicteric Sclera, No Posterior Pharyngeal Erythema Neck-Supple, No JVD, No Thyromegaly, No Masses, No LAD, No Bruits Lungs-Clear to Auscultation Bilaterally, No Rales, No Rhonchi, No Wheezing, No Crepitus Chest-No S4, +S1, +S2, No S3, No Murmurs, No Rubs, No Gallops, No Ectopy Abdomen-Soft, Bowel Sounds Present, Non Tender, Non Distended, No Hepatomegaly, No Splenomegaly, No Palpable Masses, No Rebound, No Rigidity, No Guarding Musculoskeletal-Full Range of Motion Bilaterally, No CVAT Extremities-No Cyanosis, No Clubbing, No Edema Nuero-Cranial Nerves II-XII grossly intact, Motor WNL, DTRs WNL, Strength WNL, Non Focal Psych-Normal Mood Admission and Anticipated Discharge Date Admission Date: May 27, 2020 Results & Data Results & Data ([facility]) Vital Signs (Past 12 Hours) Vital Signs Temp Pulse Pulse Resp BP BP Pulse Ox 06/02/20 04:20 37.1 C 47 L 16 114/70 90 06/01/20 23:58 36.7 C 52 L 15 125/77 90 06/01/20 22:20 52 L 06/01/20 19:32 37 C 69 18 106/63 91
[2020-06-02] MEDS: guaiFENesin 600 MG TABCR PO SCH ×2 (08:06→21:21)
[2020-06-02] MEDS: ENOXAPARIN INJ 40 MG/0.4 ML SYR SQ SCH (08:06)
[2020-06-02] MEDS: CALCIUM CARBONATE 1250MG TAB PO SCH ×2 (08:07→21:22)
[2020-06-02] MEDS: PANTOprazole 40 MG TAB PO SCH ×2 (08:07→21:22)
[2020-06-02] MEDS: oxyCODONE HCL IR 5 MG TAB (IMMEDIATE RELEASE) PO PRN ×2 (08:08→21:23)
[2020-06-02] MEDS: guaiFENesin/DEXTROM SYRUP 200MG/20MG 10ML UDC PO PRN (08:10)
[2020-06-02] MEDS: INSULIN ASPART 100 UNITS/ML 3 ML PEN SC SCH ×4 (08:30→21:53)
[2020-06-02] MEDS: dexAMETHasone 20 MG in DEXTROSE 5% 25 ML IV SCH (08:43)
[2020-06-02] MEDS: INSULIN HUMAN NPH SC SCH (08:51)
--- NOTE | 2020-06-02 10:59 | Pharmacy Report ---
Pharmacy Glycemic Short Note 2 - Date of Service June 02, 2020 - Glycemic Short BSG Results (Last 24 hours): 06/01/20 06/01/20 06/01/20 11:51 16:23 20:04 POC Glucose 173 H 172 H 215 H 06/02/20 07:49 POC Glucose 130 H OUTPATIENT ANTIDIABETIC REGIMEN: * n/a (not using medications for DM) * A1c = 7 % 05/28/20 ASSESSMENT: 06/02 * BSGs well controlled over last 24 hrs, only 1 BSG greater than 180 * 79 units SQ insulin administered over last 24 hrs while tolerating a diet and while receiving high dose IV dexamethasone * Fasting BSG 130 this AM, after receiving 45 units NPH yesterday and 7 units correction at HS * Dexamethasone IV dose will be reduced to 6mg daily starting tomorrow. Will lower NPH dose at that time, but continue same Novolog doses initially * Today's insulin regimen will mirror yesterday's 06/01 * 69 units SQ insulin administered over the last 24 hrs. * Initial BSG checked pre-dinner elevated to 282 and remained elevated HS. Patient had received steroids and not received basal or prandial insulin until the afternoon. Today's response to basal/bolus regimen should be more helpful for titration decisions. * Fasting BSG 103 this AM, this is after receiving 35 units NPH midday yesterday and 10 units correctional insulin at HS. * Will increase NPH dose to ~0.4units/kg to offset dexamethasone induced hyperglycemia * Will continue aggressive Novolog correction and prandial coverage today given observed insulin resistance during the day yesterday 05/31 * Patient admitted for severe COVID19 viral pneumonia * A1c checked this admission consistent with DM * GLU on AM chemistry consistent w/ DM vs stress / steroid induced hyperglycemia * Patient is currently ordered and tolerating a diet, plus high dose IV dexamethasone is ordered. * Will begin weight based NPH dosing to combat steroid induced hyperglycemia (~0.3units/kg initially), this will serve as the patient's daily basal dose. * Novolog will be ordered based upon weight and "high" stress calculation due to steroid use PLAN FOR INPATIENT GLYCEMIC CONTROL: * Basal insulin * NPH 45 units SQ (~0.4units/kg) Q AM with IV dexamethasone 20mg * REDUCE to 35 units (~0.3units/kg) Q AM with IV dexamethasone 6mg starting 06/03 * Bolus insulin * NovoLog per scale ACHS * Goal Range: Low 110 mg/dL - High 140 mg/dL * Correction Factor: 12 mg/dL/unit * Nutritional / Prandial insulin per carb ratio of 1 unit per 3.5 grams CHO consumed PLAN FOR DISCHARGE: * to be determined
--- NOTE | 2020-06-02 16:38 | Discharge Summary ---
Date of Service June 02, 2020 Admission HPI Per Admitting Provider History obtained from patient and records. No significant medical history. 1 week history of fever, chills, central achy abdominal pain with watery diarrhea symptoms. Poor appetite. Symptoms later followed by dry cough symptoms without chest pain. 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 Outpatient COVID-19 test from 5 days ago turned out positive. Supportive management and isolation recommended by PCP. Patient noted worsening symptoms at home. O2 sats 80s upon arrival at the ER. Patient given Decadron at the ER. 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 Admission Exam Per Admitting Provider GENERAL: Comfortable, pleasant, looks older than stated age, morbidly obese, no respiratory distress SKIN: Normal color, warm HEENT: Alopecia, pink palpebral conjunctivae, no ptosis, moist buccal mucosa, nasal cannula in place NECK : Supple, short neck, no tenderness CHEST : Decreased breath sounds, scattered crackles on the right, no tenderness HEART : RRR, no obvious murmurs ABDOMEN: Some distention, central abdominal tenderness EXTREMITIES : No LE swelling/tenderness, no other conspicuous deformities noted NEUROLOGIC : Coherent, no facial asymmetry, no other gross focality Principal Diagnosis Acute hypoxemic respiratory failure: COVID-19 Hypertension Abnormal LFTs fatty liver disease Hyperglycemia Discharge Exam See below Discharge Data Allergies Allergy/AdvReac Type Severity Reaction Status Date / Time No Known Allergies Allergy Verified 05/27/20 21:33 Consultations 05/27/20 23:19 ED Decision to Admit Stat 05/29/20 07:25 Consult Pulmonology Routine Ordered Studies 05/28/20 00:09 CT abd pelvis IV con only Urgent Current Diagnoses Morbid (severe) obesity due to excess calories (05/27/20) Pneumonia due to coronavirus disease 2019 (05/27/20) Acute respiratory failure with hypoxia (05/27/20) COVID-19 (05/27/20) Allergies No Known Allergies Allergy (Verified 05/27/20 21:33) Height/Weight/Isolation Height 5 ft 3 in Weight 112.9 kg Isolation Type COVID Precautions Chemistry 06/01/20 06:07 Sodium 138 Potassium 3.9 Chloride 107 Carbon Dioxide 28 Anion Gap 4.0 BUN 24 H Creatinine 0.92 Glucose 110 H Diabetes Follow up Diabetes Follow-up Needed for Newly Diagnosed Diabetes Hospital Course (1) Acute hypoxemic respiratory failure: Secondary to severe COVID-19 pneumonia Hypertension Possible chronic BP elevation given cardiomegaly on CXR Elevated Lipase secondary to viral diarrheal illness Rule out C. difficile No pancreatitis on initial CT read Abnormal LFTs likely secondary to fatty liver disease Hyperglycemia Down to RA now, Will get 2 step and DC home +- O2 if needed. Pred taper Labs Checked ROS-No Headache, No Visual Changes, No Nausea, No Vomiting, No Fever, No Chills, No Neck Pain or Stiffness, No Chest Pain, No Palpitations, No SOB, + BEAN, + Cough, No Sputum, No Wheezing, No Abdominal Pain, No Diarrhea, No Hematemesis, No Hemoptysis, No Unexpected Weight Loss, No Flank pain, No Melena, No Hematochezia, No Frequency, No Urgency, No Burning, No Hematuria, No Rashes, No Diaphoresis. Appetite is Normal Physical Exam Gen-AAO x 3, NAD, febrile Head-NCAT, EOMI, PERRLA, Anicteric Sclera, No Posterior Pharyngeal Erythema Neck-Supple, No JVD, No Thyromegaly, No Masses, No LAD, No Bruits Lungs-Clear to Auscultation Bilaterally, No Rales, No Rhonchi, No Wheezing, No Crepitus Chest-No S4, +S1, +S2, No S3, No Murmurs, No Rubs, No Gallops, No Ectopy Abdomen-Soft, Bowel Sounds Present, Non Tender, Non Distended, No Hepatomegaly, No Splenomegaly, No Palpable Masses, No Rebound, No Rigidity, No Guarding Musculoskeletal-Full Range of Motion Bilaterally, No CVAT Extremities-No Cyanosis, No Clubbing, No Edema Nuero-Cranial Nerves II-XII grossly intact, Motor WNL, DTRs WNL, Strength WNL, Non Focal Psych-Normal Mood Total Time Total Time Spent Total Time Spent (In Minutes): 45 mins Total Time Includes: Examination of the Patient, Discharge Planning, Medication Reconciliation and Communication With Other Providers Discharge Plan Discharge Items Patient Disposition: Home - Self-Care Reason For Visit: RESP FAILURE, COVID Discharge Diagnosis: Acute hypoxemic respiratory failure: COVID-19 Hypertension Abnormal LFTs fatty liver disease Hyperglycemia Condition on Discharge: Good Health Concerns: Shortness of breath Activity: Resume your previous activity Lifting: Gradually increase as tolerated Bathing: No limitations Sexual Activity: When tolerated Exercise/Sports: Gradually increase as tolerated Driving/Machine Use: No limitations Weightbearing: Full weightbearing 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 Follow-up/Referrals: Ryne Srivastava MD [Physician] - (1-2 weeks to wean off O2 if needed) PCP,NO [Primary Care Provider] - Diet: Carb Consistent or DM2 and Heart Healthy Addtl Attending Provider Instructions: Wear O2 if needed at bedtime 2 Liters NC or if needed for activity Pending Studies at Discharge: No Stand-Alone Forms: [employer], Smoking Cessation Medications and DC Order Prescriptions: New albuterol sulfate [Ventolin HFA] 90 mcg/actuation Hfa Aerosol Inhaler 2 puff inhalation QIDR PRN (Reason: shortness of breath or wheezing) Qty: 1 RF: 0 benzonatate [Tessalon Perles] 100 mg Capsule 200 mg PO TID PRN (Reason: cough) Qty: 30 RF: 0 pantoprazole 40 mg Tablet,Delayed Release (Dr/Ec) 40 mg PO BID Qty: 20 RF: 0 Robitussin Cough-Chest Bryce DM 5-100 mg/5 mL Liquid 10 ml PO Q6H PRN (Reason: cough) Qty: 250 RF: 0 calcium carbonate-vitamin D3 [Os-Molina 500 + D3] 500mg (1,250mg) -600 unit Tablet 1,250 mg PO BID Qty: 10 RF: 0 guaifenesin [Mucinex] 600 mg Tablet Extended Release 12hr 1,200 mg PO Q12 Qty: 20 RF: 0 prednisone 10 mg tablet 10 mg PO DAILY Qty: 21 RF: 0 Discontinued benzonatate 100 mg capsule 100 mg PO TID PRN (Reason: Cough) RF: 0 Discharge Orders: Discharge Order (Routine); Ordered 06/02/20 Ordered By: Asa Lambert/Other Patient Handouts: High Blood Sugar (Hyperglycemia), Hypoglycemia (Low Blood Sugar), Managing Type 2 Diabetes, Exercise to Manage Your Blood Sugar, 5 Steps for Eating Healthier, Understanding Type 2 Diabetes, A1C Admission Data Admit Date/Time: 05/27/20 23:50 Attending Provider: Asa Christian Admit Provider: Kevan Lucero Primary Care Provider: PCP,NO Other Providers: Kevan Lucero ; Ryne Srivastava
--- NOTE | 2020-06-03 08:07 | Hospitalist Progress Note ---
Date of Service June 03, 2020 Assessment & Plan (1) Acute hypoxemic respiratory failure: Secondary to severe COVID-19 pneumonia Hypertension Possible chronic BP elevation given cardiomegaly on CXR Elevated Lipase secondary to viral diarrheal illness Rule out C. difficile No pancreatitis on initial CT read Abnormal LFTs likely secondary to fatty liver disease Hyperglycemia Down to RA now, Pateint requiring Home O2, Trying to arrange Labs Checked ROS-No Headache, No Visual Changes, No Nausea, No Vomiting, No Fever, No Chills, No Neck Pain or Stiffness, No Chest Pain, No Palpitations, No SOB, + BEAN, + Cough, No Sputum, No Wheezing, No Abdominal Pain, No Diarrhea, No Hematemesis, No Hemoptysis, No Unexpected Weight Loss, No Flank pain, No Melena, No Hematochezia, No Frequency, No Urgency, No Burning, No Hematuria, No Rashes, No Diaphoresis. Appetite is Normal Physical Exam Gen-AAO x 3, NAD, febrile Head-NCAT, EOMI, PERRLA, Anicteric Sclera, No Posterior Pharyngeal Erythema Neck-Supple, No JVD, No Thyromegaly, No Masses, No LAD, No Bruits Lungs-Clear to Auscultation Bilaterally, No Rales, No Rhonchi, No Wheezing, No Crepitus Chest-No S4, +S1, +S2, No S3, No Murmurs, No Rubs, No Gallops, No Ectopy Abdomen-Soft, Bowel Sounds Present, Non Tender, Non Distended, No Hepatomegaly, No Splenomegaly, No Palpable Masses, No Rebound, No Rigidity, No Guarding Musculoskeletal-Full Range of Motion Bilaterally, No CVAT Extremities-No Cyanosis, No Clubbing, No Edema Nuero-Cranial Nerves II-XII grossly intact, Motor WNL, DTRs WNL, Strength WNL, Non Focal Psych-Normal Mood Admission and Anticipated Discharge Date Admission Date: May 27, 2020 Results & Data Results & Data ([facility]) Vital Signs (Past 12 Hours) Vital Signs Temp Pulse Pulse Pulse Resp BP BP 06/03/20 07:30 49 L 06/03/20 07:27 37.1 C 54 L 19 127/70 06/03/20 05:12 36.9 C 58 L 18 142/81 H 06/03/20 03:18 56 L 06/03/20 01:51 50 L 06/02/20 23:00 36.8 C 52 L 20 123/71 06/02/20 22:15 60 Pulse Ox Pulse Ox 06/03/20 07:30 06/03/20 07:27 91 06/03/20 05:12 91 06/03/20 03:18 89 L 06/03/20 01:51 06/02/20 23:00 93 06/02/20 22:15 96
[2020-06-03] MEDS: ENOXAPARIN INJ 40 MG/0.4 ML SYR SQ SCH (08:47)
[2020-06-03] MEDS: guaiFENesin 600 MG TABCR PO SCH (08:47)
[2020-06-03] MEDS: PANTOprazole 40 MG TAB PO SCH (08:48)
[2020-06-03] MEDS: CALCIUM CARBONATE 1250MG TAB PO SCH (08:48)
[2020-06-03] MEDS ORDERED: dexAMETHasone 6 MG in SYRINGE 0 ML IV SCH (09:00)
[2020-06-03] MEDS ORDERED: INSULIN HUMAN NPH SC SCH (09:00)
[2020-06-03] MEDS: INSULIN ASPART 100 UNITS/ML 3 ML PEN SC SCH ×2 (09:21→12:43)
--- NOTE | 2020-06-03 12:34 | Pharmacy Report ---
Pharmacy Glycemic Short Note 2 - Date of Service June 03, 2020 - Glycemic Short BSG Results (Last 24 hours): 06/02/20 06/02/20 06/03/20 16:35 20:32 07:25 POC Glucose 199 H 190 H 106 H 06/03/20 11:29 POC Glucose 232 H OUTPATIENT ANTIDIABETIC REGIMEN: * n/a (not using medications for DM) * A1c = 7 % 05/28/20 ASSESSMENT: 06/03 * BSGs acceptable, however somewhat above goal yesterday. Given step down in steroid dose today, perhaps today's BSGs will be closer to goal * Fasting BSG at goal this AM w/ 45 units NPH on board and after 5 units correction at HS - lesser dose of NPH given today, will need to reassess NPH needs tomorrow based upon today's post-prandials and tomorrow's fasting BSG * Slight increase in prandial insulin made today should lesser NPH dose lead to rise in BSGs 06/02 * BSGs well controlled over last 24 hrs, only 1 BSG greater than 180 * 79 units SQ insulin administered over last 24 hrs while tolerating a diet and while receiving high dose IV dexamethasone * Fasting BSG 130 this AM, after receiving 45 units NPH yesterday and 7 units correction at HS * Dexamethasone IV dose will be reduced to 6mg daily starting tomorrow. Will lower NPH dose at that time, but continue same Novolog doses initially * Today's insulin regimen will mirror yesterday's 06/01 * 69 units SQ insulin administered over the last 24 hrs. * Initial BSG checked pre-dinner elevated to 282 and remained elevated HS. Patient had received steroids and not received basal or prandial insulin until the afternoon. Today's response to basal/bolus regimen should be more helpful for titration decisions. * Fasting BSG 103 this AM, this is after receiving 35 units NPH midday yesterday and 10 units correctional insulin at HS. * Will increase NPH dose to ~0.4units/kg to offset dexamethasone induced hyperglycemia * Will continue aggressive Novolog correction and prandial coverage today given observed insulin resistance during the day yesterday 05/31 * Patient admitted for severe COVID19 viral pneumonia * A1c checked this admission consistent with DM * GLU on AM chemistry consistent w/ DM vs stress / steroid induced hyperglycemia * Patient is currently ordered and tolerating a diet, plus high dose IV dexamet hasone is ordered. * Will begin weight based NPH dosing to combat steroid induced hyperglycemia (~0.3units/kg initially), this will serve as the patient's daily basal dose. * Novolog will be ordered based upon weight and "high" stress calculation due to steroid use PLAN FOR INPATIENT GLYCEMIC CONTROL: * Basal insulin * NPH 35 units (~0.3units/kg) Q AM with IV dexamethasone 6mg * Bolus insulin * NovoLog per scale ACHS * Goal Range: Low 110 mg/dL - High 140 mg/dL * Correction Factor: 12 mg/dL/unit * Nutritional / Prandial insulin per carb ratio of 1 unit per 3 grams CHO consumed PLAN FOR DISCHARGE: * to be determined
== END 2020-06-03 15:00 | disposition home or self-care (01) | DRG 177 ==
LOC: ED 19:50 → 2E 23:50

== ENCOUNTER 2020-06-24 14:28 | Inpatient (IN) ==
[2020-06-24] MEDS ORDERED: SODIUM CHLORIDE 0.9% 500 ML IV SCH (15:45)
--- NOTE | 2020-06-24 15:50 | Emergency Department Note ---
Impression & Plan Jaundice, Scleral icterus, History of COVID-19, Acute hyponatremia ED Provider Note NAME: RUFINA CARDENAS AGE: 49 SEX: M : 1970 ARRIVES VIA: Walk-In INFORMANT: [Patient] ED PROVIDER(S): [Gino Hart MD] CHIEF COMPLAINT: Illness HISTORY OF PRESENT ILLNESS: The patient is a 49-year-old male who states that last week, he noticed that his skin was itchy. He also noticed some darker colored urine. Today, his sister came to the home and felt he was yellow in color. The patient spoke to his doctor's office and they referred him to the ED. The patient has lost some weight however, this has been intentional. There has been no nausea or vomiting. No diarrhea. He has no abdominal pain. He is not coughing, there has been no fever. The patient is not a heavy alcohol user. The patient states that he did have COVID-19 earlier this year, he has recovered well though. REVIEW OF SYSTEMS: See HPI for pertinent positives and negatives. A total of ten systems were reviewed and were otherwise negative. PMHx/PSHx: See Below SOCIAL HISTORY: See Below. PHYSICAL EXAM: GENERAL: Patient is in no acute distress. HEENT: No acute trauma, normocephalic atraumatic, mucous membranes moist, no nasal congestion, moderate scleral icterus. NECK: No stridor, no adenopathy, no meningismus, trachea is midline. LUNGS: Clear to auscultation bilaterally, no wheeze, no rhonchi, breath sounds equal. HEART: Without murmurs gallops or rubs, regular rate and rhythm. ABDOMEN: Soft, nontender, bowel sounds positive, no hernias, no peritonitis. No tenderness in the right upper quadrant, no obvious enlargement to his liver by exam. EXTREMITIES: No cyanosis or edema, full range of motion of all the joints without pain or difficulty, no signs for acute trauma. NEUROLOGIC: Oriented x 3, no acute motor or sensory deficits, no focal weakness. SKIN: No rash, moderate jaundice, no diaphoresis. DIFFERENTIAL DIAGNOSIS: Infection, dehydration, metabolic abnormality, hypo/hyperglycemia, electrolyte disturbance, hepatitis, viral illness, malignancy, cholangitis, biliary disease, anemia, hypoxia, toxicologic issues, stroke, TIA, as well as other pathologies. EMERGENCY DEPARTMENT COURSE/PROCEDURES: ECG: Indication was weakness. The ECG shows a normal sinus rhythm with a rate of 79. There is LVH present. There is no ST elevation, no PVCs. The QTc is 467. Continuous Cardiac Monitoring: An order was placed for continuous cardiac monitoring. The monitor shows a rate of 81 with normal sinus rhythm. MEDICAL DECISION MAKING: There is no leukocytosis. A mild anemia was noted. Platelet count slightly elevated. No coagulopathy. The sodium was somewhat low at 133. No kidney failure. Liver enzymes demonstrated a bilirubin of 13.5. The direct bilirubin was 10.8. He did have elevation to the AST, ALT and alk phos. Total creatinine kinase was not elevated. There is no evidence for thyroid dysfunction. Lipase was elevated however, the value was less than when he was in the hospital last. ECG shows a sinus rhythm, no acute ischemia. Cardiac enzyme testing x1 is not consistent with acute cardiac injury. Tylenol level could not be run because of his icteric blood. Hepatitis panel is currently pending. Lyon screen is negative. Abdominal and pelvis CT shows a fatty liver. There was no true biliary obstruction. No malignancy seen. Findings of his recent Covid pneumonia were seen on his lung images. Chest x-ray does show some patchy bilateral infiltrates consistent with his recent diagnosis of Covid pneumonia. On exam, the patient was quite jaundiced. He had no abdominal discomfort by my exam. Patient presents jaundiced. The cause is unclear. He was given a 500 cc bolus during his ED stay. Given his exam findings, given his laboratory findings, I do think a hospital stay is warranted. The reason for his jaundice is not clear. I highly doubt excessive Tylenol ingestion as he took what sounds like the recommended amount of Tylenol when he was ill several weeks ago. He has not taken Tylenol since. I did speak with case management, I talked with the patient. The on-call hospitalist was consulted. Past Med/Surg History Medical History Epistaxis History of COVID-19 Social History Smoking Status: Never smoker Hx Alcohol Use: No Hx Substance Use: No Preferred Language: [place] Communication Ability: Effective Beliefs That Will Affect Care: None Current Living Situation: Family Feels Safe at Home: Yes Assistive Devices: None Allergies Allergies Allergy/AdvReac Type Severity Reaction Status Date / Time No Known Allergies Allergy Verified 06/17/20 13:26 Home Meds Previous Rx's Medication Instructions Recorded albuterol sulfate [Ventolin HFA] 2 puff INHALATION QIDR PRN #1 g 06/02/20 benzonatate [Tessalon Perles] 200 mg PO TID PRN #30 cap 06/02/20 calcium carbonate-vitamin D3 1,250 mg PO BID #10 tab 06/02/20 [Os-Molina 500 + D3] dextromethorphan-guaifenesin 10 ml PO Q6H PRN #250 ml 06/02/20 [Robitussin Cough-Chest Bryce DM] guaifenesin [Mucinex] 1,200 mg PO Q12 #20 tab 06/02/20 fluticasone propionate 50 1 spray INTRANASAL DAILY #9.9 g 06/17/20 mcg/actuation nasal spray,suspension Results & Data (ED) Vital Signs Vital Signs - 24 hr 06/24/20 14:39 06/24/20 16:24 06/24/20 17:48 Temperature 36.7 C Temperature Source Temporal Artery Scan Pulse Rate 110 H 81 Pulse Rate [Left] 85 83 Respiratory Rate 20 16 18 Respiratory Effort / Characteristics Non-Labored Spontaneous Non-Labored Spontaneous Respiratory Depth Normal Normal Blood Pressure 163/93 H Blood Pressure [Left Arm] 135/85 133/90 Blood Pressure Mean 116 Blood Pressure Mean [Left Arm] 101 104 Blood Pressure Position [Left Arm] Lying Lying Pulse Oximetry 96 95 94 Oxygen Delivery Method Room Air Room Air Room Air Sepsis Recent Fever Within 48 Hours No Sepsis New/Unexplained Change in Mental Status N/A Sepsis Action Taken by Nursing No Action Required Home Medications Current Medication List: was personally reviewed by me Laboratory Data Attestation: I reviewed the patient's lab results. Result diagrams: 06/24/20 16:13 06/24/20 16:13 Lab Results 06/24/20 06/24/20 06/24/20 Range/Units 16:13 16:13 16:13 WBC 5.82 (4.8-10.8) K/uL RBC 4.56 L (4.7-6.1) M/uL Hgb 13.6 L (14.0-18.0) g/dL Hct 39.1 L (42-52) % MCV 85.7 (80-100) fL MCH 29.8 (25-34) pg MCHC 34.8 (32-36) g/dL RDW Std Deviation 48.4 H (36.4-46.3) fL RDW Coeff of Samir 15.4 H (11.5-14.5) % Plt Count 422 H (130-400) K/uL MPV 9.3 (7.4-10.4) fL Immature Gran % (Auto) 2.1 % Neut % (Auto) 54.5 % Lymph % (Auto) 21.5 % Lyon % (Auto) 17.4 % Eos % (Auto) 3.1 % Baso % (Auto) 1.4 % Neut # (Auto) 3.18 (1.4-6.5) K/uL Lymph # (Auto) 1.25 (1.2-3.4) K/uL Lyon # (Auto) 1.01 H (0.11-0.59) K/uL Eos # (Auto) 0.18 (0-0.5) K/uL Baso # (Auto) 0.08 (0-0.2) K/uL Immature Gran # (Auto) 0.12 H (0.00-0.02) K/uL PT 9.8 (9.0-12.0) Seconds INR 1.0 (0.9-1.1) APTT 26.6 (21.0-31.0) Seconds PTT Ratio 1.0 Sodium 133 L (136-145) mmol/L Potassium 3.5 (3.5-5.1) mmol/L Chloride 99 (98-107) mmol/L Carbon Dioxide 27 (21-32) mmol/L Anion Gap 7.0 (3-11) BUN 13 (7-18) mg/dl Creatinine 1.22 (0.6-1.4) mg/dl Est Cr Clr Drug Dosing 80.6 ml/min Est GFR ( Amer) 81.3 Est GFR (Non-Af Amer) 70.2 BUN/Creatinine Ratio 10.3 (10-20) Glucose 193 H (70-99) mg/dl Calcium 8.8 (8.5-10.1) mg/dl Magnesium 2.5 H (1.8-2.4) mg/dl Total Bilirubin 13.5 H (0.2-1) mg/dl Direct Bilirubin (0-0.2) mg/dl AST 47 H (15-37) U/L ALT 196 H (12-78) U/L Alkaline Phosphatase 394 H (45-117) U/L Total Creatine Kinase 68 (39-308) U/L Troponin I < 0.015 (0-0.045) ng/ml Total Protein 7.0 (6.4-8.2) gm/dl Albumin 2.6 L (3.4-5.0) gm/dl Globulin 4.4 H (2.5-4.0) gm/dl Albumin/Globulin Ratio 0.6 L (0.9-2) Lipase 927 H (73-393) U/L TSH 1.640 (0.300-4.500) uIu/ml Acetaminophen (10-30) ug/ml Hep Bs Antigen (Neg) Hepatitis C Antibody (Neg) Monoscreen (Negative) 06/24/20 06/24/20 06/24/20 Range/Units 16:13 16:13 16:13 WBC (4.8-10.8) K/uL RBC (4.7-6.1) M/uL Hgb (14.0-18.0) g/dL Hct (42-52) % MCV (80-100) fL MCH (25-34) pg MCHC (32-36) g/dL RDW Std Deviation (36.4-46.3) fL RDW Coeff of Samir (11.5-14.5) % Plt Count (130-400) K/uL MPV (7.4-10.4) fL Immature Gran % (Auto) % Neut % (Auto) % Lymph % (Auto) % Lyon % (Auto) % Eos % (Auto) % Baso % (Auto) % Neut # (Auto) (1.4-6.5) K/uL Lymph # (Auto) (1.2-3.4) K/uL Lyon # (Auto) (0.11-0.59) K/uL Eos # (Auto) (0-0.5) K/uL Baso # (Auto) (0-0.2) K/uL Immature Gran # (Auto) (0.00-0.02) K/uL PT (9.0-12.0) Seconds INR (0.9-1.1) APTT (21.0-31.0) Seconds PTT Ratio Sodium (136-145) mmol/L Potassium (3.5-5.1) mmol/L Chloride (98-107) mmol/L Carbon Dioxide (21-32) mmol/L Anion Gap (3-11) BUN (7-18) mg/dl Creatinine (0.6-1.4) mg/dl Est Cr Clr Drug Dosing ml/min Est GFR ( Amer) Est GFR (Non-Af Amer) BUN/Creatinine Ratio (10-20) Glucose (70-99) mg/dl Calcium (8.5-10.1) mg/dl Magnesium (1.8-2.4) mg/dl Total Bilirubin (0.2-1) mg/dl Direct Bilirubin (0-0.2) mg/dl AST (15-37) U/L ALT (12-78) U/L Alkaline Phosphatase (45-117) U/L Total Creatine Kinase (39-308) U/L Troponin I (0-0.045) ng/ml Total Protein (6.4-8.2) gm/dl Albumin (3.4-5.0) gm/dl Globulin (2.5-4.0) gm/dl Albumin/Globulin Ratio (0.9-2) Lipase (73-393) U/L TSH (0.300-4.500) uIu/ml Acetaminophen (10-30) ug/ml Hep Bs Antigen Neg (Neg) Hepatitis C Antibody Neg (Neg) Monoscreen Negative (Negative) 06/24/20 Range/Units 16:13 WBC (4.8-10.8) K/uL RBC (4.7-6.1) M/uL Hgb (14.0-18.0) g/dL Hct (42-52) % MCV (80-100) fL MCH (25-34) pg MCHC (32-36) g/dL RDW Std Deviation (36.4-46.3) fL RDW Coeff of Samir (11.5-14.5) % Plt Count (130-400) K/uL MPV (7.4-10.4) fL Immature Gran % (Auto) % Neut % (Auto) % Lymph % (Auto) % Lyon % (Auto) % Eos % (Auto) % Baso % (Auto) % Neut # (Auto) (1.4-6.5) K/uL Lymph # (Auto) (1.2-3.4) K/uL Lyon # (Auto) (0.11-0.59) K/uL Eos # (Auto) (0-0.5) K/uL Baso # (Auto) (0-0.2) K/uL Immature Gran # (Auto) (0.00-0.02) K/uL PT (9.0-12.0) Seconds INR (0.9-1.1) APTT (21.0-31.0) Seconds PTT Ratio Sodium (136-145) mmol/L Potassium (3.5-5.1) mmol/L Chloride (98-107) mmol/L Carbon Dioxide (21-32) mmol/L Anion Gap (3-11) BUN (7-18) mg/dl Creatinine (0.6-1.4) mg/dl Est Cr Clr Drug Dosing ml/min Est GFR ( Amer) Est GFR (Non-Af Amer) BUN/Creatinine Ratio (10-20) Glucose (70-99) mg/dl Calcium (8.5-10.1) mg/dl Magnesium (1.8-2.4) mg/dl Total Bilirubin (0.2-1) mg/dl Direct Bilirubin 10.8 H (0-0.2) mg/dl AST (15-37) U/L ALT (12-78) U/L Alkaline Phosphatase (45-117) U/L Total Creatine Kinase (39-308) U/L Troponin I (0-0.045) ng/ml Total Protein (6.4-8.2) gm/dl Albumin (3.4-5.0) gm/dl Globulin (2.5-4.0) gm/dl Albumin/Globulin Ratio (0.9-2) Lipase (73-393) U/L TSH (0.300-4.500) uIu/ml Acetaminophen (10-30) ug/ml Hep Bs Antigen (Neg) Hepatitis C Antibody (Neg) Monoscreen (Negative) Administered Medications Discontinued Medications Sodium Chloride (Nss) 500 mls @ 999 mls/hr IV .Q31M [facility] Stop: 06/24/20 16:15 Last Infusion: 06/24/20 17:37 Dose: 0 mls/hr Documented by: [id number] Admin: 06/24/20 16:28 Dose: 999 mls/hr Documented by: [id number] Ioversol (Optiray 300 100ml) 89 ml IV ONCE ONE Stop: 06/24/20 17:59 Last Admin: 06/24/20 17:58 Dose: 89 ml Documented by: [id number] Imaging Data Radiologist's Impression: Abdomen/Pelvis CT 06/24/20 15:44 CT OF THE ABDOMEN AND PELVIS WITH CONTRAST CLINICAL HISTORY: Jaundice. COMPARISON STUDY: CT of the abdomen and pelvis May 28, 2020. TECHNIQUE: Following IV administration of 89 mL of Optiray, axial images of the abdomen and pelvis were obtained from the lung bases to the proximal femurs. Images were reviewed in the axial, sagittal, and coronal planes. IV contrast was administered without complication. Automated exposure control was utilized for the study. A dose lowering technique was utilized adhering to the principles of ALARA. CT DOSE: 1248.82 mGy.cm FINDINGS: Ground glass opacities within the lower lungs have improved since CT of May 28, 2020. Hepatic steatosis is noted. No hepatic lesions are identified. There is no biliary ductal dilatation. There are gallstones within the gallbladder. There is no evidence for acute cholecystitis. No pancreatic ductal dilatation is present. No pancreatic lesion is noted. There is apparent slight fullness of the pancreas when compared to CT of May 28, 2020. No peripancreatic infiltration is noted. The spleen, adrenal glands and right kidney are normal with the exception of borderline splenomegaly which is unchanged. Left renal calculi are noted. There is no ureteral calculi or hydronephrosis. There is no evidence for a bowel obstruction. The caliber and wall thickness of small and large bowel are normal. The appendix is normal. The prostate is moderately enlarged. No acute fracture or suspicious lesion is bhargav ntified within the visualized skeletal structures. Major vasculature is patent. IMPRESSION: 1. Hepatic steatosis. No biliary or pancreatic ductal dilatation. Slight prominence of the pancreas when compared to CT of May 28, 2020. Correlation with serum lipase is recommended. No pancreatic mass identified. 2. Cholelithiasis. No evidence for acute cholecystitis. 3. Left-sided nephrolithiasis. No ureteral calculi or hydronephrosis. 4. No bowel obstruction. Normal appendix. No bowel wall thickening. 5. Interval improvement in groundglass opacities within the lower lungs since CT of May 28, 2020. ACT 112: Negative or not required by law. Electronically signed by: Scooter Reynolds M.D. 06/24/2020 6:29 PM Chest X-Ray 06/24/20 15:44 XR chest 1V portable CLINICAL HISTORY: weakness COMPARISON STUDY: Chest radiograph June 17, 2020. FINDINGS: Lung volumes are diminished. This is unchanged. Multifocal bilateral airspace opacities are noted. Right perihilar opacity has slightly progressed. Cardiomediastinal silhouette is stable. There is no pneumothorax or pleural effusion. IMPRESSION: Progression of bilateral airspace opacities consistent with multifocal pneumonia. ACT 112: Negative or not required by law. Electronically signed by: Scooter Reynolds M.D. 06/24/2020 4:13 PM Discharge Plan Visit Data Chief Complaint: Illness Stated Complaint: LIVER FAILURE ED Provider: Gino Hart Discharge Problem: Jaundice, Scleral icterus, History of COVID-19, Acute hyponatremia Patient Disposition: Admitted As Inpatient Condition: Fair Forms Stand Alone Forms: [facility], Virtual Emergency Department, Important Visit Information Prescriptions Prescriptions: No Action fluticasone propionate [Allergy Relief (fluticasone)] 50 mcg/actuation spray,suspension 1 spray intranasal DAILY Qty: 9.9 RF: 1 albuterol sulfate [Ventolin HFA] 90 mcg/actuation Hfa Aerosol Inhaler 2 puff inhalation QIDR PRN (Reason: shortness of breath or wheezing) Qty: 1 RF: 0 benzonatate [Tessalon Perles] 100 mg Capsule 200 mg PO TID PRN (Reason: cough) Qty: 30 RF: 0 Robitussin Cough-Chest Bryce DM 5-100 mg/5 mL Liquid 10 ml PO Q6H PRN (Reason: cough) Qty: 250 RF: 0 calcium carbonate-vitamin D3 [Os-Molina 500 + D3] 500mg (1,250mg) -600 unit Tablet 1,250 mg PO BID Qty: 10 RF: 0 guaifenesin [Mucinex] 600 mg Tablet Extended Release 12hr 1,200 mg PO Q12 Qty: 20 RF: 0 Referrals Referrals: PCP,NO [Primary Care Provider] -
--- NOTE | 2020-06-24 16:15 | XRay Report ---
XR chest 1V portable CLINICAL HISTORY: weakness COMPARISON STUDY: Chest radiograph June 17, 2020. FINDINGS: Lung volumes are diminished. This is unchanged. Multifocal bilateral airspace opacities are noted. Right perihilar opacity has slightly progressed. Cardiomediastinal silhouette is stable. Ther e is no pneumothorax or pleural effusion. IMPRESSION: Progression of bilateral airspace opacities consistent with multifocal pneumonia. ACT 112: Negative or not required by law. Electronically signed by: Scooter Reynolds M.D. 06/24/2020 4:13 PM
[2020-06-24 16:28] LABS: Basophils # (auto) 0.08 K/uL (0-0.2); Basophils % (auto) 1.4 %; Eosinophils # (auto) 0.18 K/uL (0-0.5); Eosinophils % (auto) 3.1 %; Hematocrit (blood only) 39.1 % (42-52); Hemoglobin 13.6 g/dL (14.0-18.0); Immature Granulocytes # (auto) 0.12 K/uL (0.00-0.02); Immature Granulocytes % (auto) 2.1 %; Lymphocytes # (auto) 1.25 K/uL (1.2-3.4); Lymphocytes % (auto) 21.5 %; Mean Corpuscular Hemoglobin 29.8 pg (25-34); Mean Corpuscular Hgb Conc 34.8 g/dL (32-36); Mean Corpuscular Volume 85.7 fL (80-100); Mean Platelet Volume 9.3 fL (7.4-10.4); Monocytes # (auto) 1.01 K/uL (0.11-0.59); Monocytes % (auto) 17.4 %; Neutrophils # (auto) 3.18 K/uL (1.4-6.5); Neutrophils % (auto) 54.5 %; Platelet Count 422 K/uL (130-400); RDW Coefficient of Variation 15.4 % (11.5-14.5); RDW Standard Deviation 48.4 fL (36.4-46.3); Red Blood Count 4.56 M/uL (4.7-6.1); White Blood Count 5.82 K/uL (4.8-10.8)
--- NOTE | 2020-06-24 16:30 | Electrocardiogram Report ---
Test Reason : Blood Pressure : / mmHG Vent. Rate : 079 BPM Atrial Rate : 079 BPM P-R Int : 154 ms QRS Dur : 122 ms QT Int : 408 ms P-R-T Axes : 026 -17 005 degrees QTc Int : 467 ms Normal sinus rhythm Left ventricular hypertrophy with QRS widening Incomplete right bundle branch block Abnormal ECG When compared with ECG of 27-MAY-2020 20:42, T wave inversion now evident in Inferior leads Confirmed by Luis Velásquez ([id number]) on 06/24/2020 4:30:13 PM Referred By: REFERRED SELF Confirmed By:Omid Velásquez
[2020-06-24 16:38] LABS: Partial Thromboplastin Time 26.6 Seconds (21.0-31.0); Prothrombin Time 9.8 Seconds (9.0-12.0)
[2020-06-24 17:11] LABS: Alanine Aminotransferase 196 U/L (12-78); Albumin Globulin Ratio 0.6 (0.9-2); Albumin Level 2.6 gm/dl (3.4-5.0); Alkaline Phosphatase 394 U/L (45-117); Aspartate Aminotransferase 47 U/L (15-37); BUN Creatinine Ratio 10.3 (10-20); Bilirubin,Total 13.5 mg/dl (0.2-1); Blood Urea Nitrogen 13 mg/dl (7-18); Calcium 8.8 mg/dl (8.5-10.1); Carbon Dioxide 27 mmol/L (21-32); Chloride 99 mmol/L (98-107); Creatine Kinase 68 U/L (39-308); Creatinine Clr Calc Pharmacy 80.6 ml/min; Est GFR (African American) 81.3; Est GFR (Non-African American) 70.2; Globulin 4.4 gm/dl (2.5-4.0); Glucose 193 mg/dl (70-99); Lipase 927 U/L (73-393); Magnesium 2.5 mg/dl (1.8-2.4); Potassium 3.5 mmol/L (3.5-5.1); Sodium 133 mmol/L (136-145); Troponin I < 0.015 ng/ml (0-0.045)
[2020-06-24 17:15] LABS: Hepatitis B Surf Ag Rflx Conf Neg (Neg)
[2020-06-24 17:40] LABS: Hepatitis C IgG 13Yrs+Old_Rflx Neg (Neg)
[2020-06-24] MEDS ORDERED: OPTIRAY 300 100mL IV ONE (17:58)
--- NOTE | 2020-06-24 18:31 | CT Scan Report ---
CT OF THE ABDOMEN AND PELVIS WITH CONTRAST CLINICAL HISTORY: Jaundice. COMPARISON STUDY: CT of the abdomen and pelvis May 28, 2020. TECHNIQUE: Following IV administration of 89 mL of Optiray, axial images of the abdomen and pelvis we re obtained from the lung bases to the proximal femurs. Images were reviewed in the axial, sagittal, and coronal planes. IV contrast was administered without complication. Automated exposure control wa s utilized for the study. A dose lowering technique was utilized adhering to the principles of ALARA . CT DOSE: 1248.82 mGy.cm FINDINGS: Ground glass opacities within the lower lungs have improved since CT of May 28, 2020. Hep atic steatosis is noted. No hepatic lesions are identified. There is no biliary ductal dilatation. Th ere are gallstones within the gallbladder. There is no evidence for acute cholecystitis. No pancreati c ductal dilatation is present. No pancreatic lesion is noted. There is apparent slight fullness of t he pancreas when compared to CT of May 28, 2020. No peripancreatic infiltration is noted. The splee n, adrenal glands and right kidney are normal with the exception of borderline splenomegaly which is unchanged. Left renal calculi are noted. There is no ureteral calculi or hydronephrosis. There is no evidence for a bowel obstruction. The caliber and wall thickness of small and large bowel are normal. The appendix is normal. The prostate is moderately enlarged. No acute fracture or suspicious lesion is identified within the visualized skeletal structures. Major vasculature is patent. IMPRESSION: 1. Hepatic steatosis. No biliary or pancreatic ductal dilatation. Slight prominence of the pancreas w hen compared to CT of May 28, 2020. Correlation with serum lipase is recommended. No pancreatic mas s identified. 2. Cholelithiasis. No evidence for acute cholecystitis. 3. Left-sided nephrolithiasis. No ureteral calculi or hydronephrosis. 4. No bowel obstruction. Normal appendix. No bowel wall thickening. 5. Interval improvement in groundglass opacities within the lower lungs since CT of May 28, 2020. ACT 112: Negative or not required by law. Electronically signed by: Scooter Reynolds M.D. 06/24/2020 6:29 PM
--- NOTE | 2020-06-24 20:12 | History & Physical Report ---
Date of Service June 24, 2020 Assessment & Plan (1) Abnormal liver enzymes: History fatty liver disease Recent confinement for COVID-19 pneumonia status post Remdesivir Rx (05/2020) Patient presenting with 1 week history of pruritus and jaundice symptoms sans abdominal pain. ? Remdesivir toxicity Persistent hyperlipasemia Present during last month's confinement for COVID-19 pneumonia Situational hypertension, possible chronic BP elevation given LVH on EKG DM2, diet controlled, new diagnosis from last month with hemoglobin A1c of 7. GMF Follow LFTs GI consult Re: Abnormal LFTs Monitor BP, initiate lisinopril if with persistent elevation Basal insulin, ISS BG goal 110-140, carb count coverage DVT prophylaxis. Lovenox subcu Full code Text document was generated using [employer] voice recognition software. It may contain grammatical or spelling errors. Kindly contact undersigned for clarification of any documentation item in question. History of Present Illness Chief Complaint: Jaundice, pruritus Primary Care Provider: Dr. Triplett History obtained from patient and records. Medical history significant for hepatic steatosis, recent COVID-19 pneumonia, DM2 diet-controlled. Recent confinement last month for acute hypoxemic respiratory failure secondary to severe COVID-19 pneumonia. Patient completed Decadron and Remdesivir course. Discharged on home O2 at night due to episodic hypoxemia. Cough and shortness of breath symptoms better as per patient. Episode of epistaxis. A week ago patient noted increased pruritus all over. Urine noted to be dark and stools yellow in color. No abdominal pain, no fever, no chills. Patient denies inordinate Tylenol intake. No recent EtOH intake as per patient. Patient directed to the ER by PCP. 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, currently unemployed Allergies Allergy/AdvReac Type Severity Reaction Status Date / Time No Known Allergies Allergy Verified 06/17/20 13:26 Home Medications Medication Instructions Recorded Confirmed Type albuterol sulfate [Ventolin HFA] 2 puff INHALATION QIDR PRN #1 g 06/02/20 06/24/20 Rx benzonatate [Tessalon Perles] 200 mg PO TID PRN #30 cap 06/02/20 06/24/20 Rx calcium carbonate-vitamin D3 1,250 mg PO BID #10 tab 06/02/20 06/24/20 Rx [Os-Molina 500 + D3] dextromethorphan-guaifenesin 10 ml PO Q6H PRN #250 ml 06/02/20 06/24/20 Rx [Robitussin Cough-Chest Bryce DM] guaifenesin [Mucinex] 1,200 mg PO Q12 #20 tab 06/02/20 06/24/20 Rx fluticasone propionate 50 1 spray INTRANASAL DAILY #9.9 g 06/17/20 06/24/20 Rx mcg/actuation nasal spray,suspension Past Med/Surg History Medical History Epistaxis History of COVID-19 Social History Smoking Status: Never smoker Second Hand Exposure: Yes; Do You Dip or Chew Tobacco: No; Hx Alcohol Use: No Hx Substance Use: No Preferred Language: Romansh Communication Ability: Effective Athletic Agent Required: No Beliefs That Will Affect Care: None Current Living Situation: Parent Current Living Situation Comment: Father lives with patient Other Information That Helps Us Care for You: No Feels Safe at Home: Yes Safety Concerns: Feels Safe At This Time Assistive Devices: Oxygen - at Night Assistive Devices Comment: 2L at night Review of Systems Review of Systems: As per HPI, all 10 systems reviewed, all other ROS negative Physical Exam Physical Exam: GENERAL: Comfortable, pleasant, morbidly obese, no respiratory distress SKIN: Jaundice, warm, excoriations on some skin areas HEENT: [place] palpebral conjunctivae, no ptosis, dry buccal mucosa NECK : Supple, short neck, no tenderness CHEST : Decreased breath sounds, no tenderness HEART : RRR, no obvious murmurs ABDOMEN: Some distention, nontender EXTREMITIES : No LE swelling/tenderness, no other conspicuous deformities noted NEUROLOGIC : Coherent, no facial asymmetry, no other gross focality Results & Data Results & Data ([facility]) Vital Signs (Past 12 Hours) Vital Signs Temp Pulse Pulse Resp BP BP Pulse Ox 06/24/20 19:45 73 14 132/89 94 06/24/20 19:42 67 16 126/95 94 06/24/20 17:48 83 18 133/90 94 06/24/20 17:30 77 17 133/90 94 06/24/20 17:00 83 16 145/93 H 95 06/24/20 16:59 81 15 97 06/24/20 16:30 79 16 132/83 97 06/24/20 16:24 81 85 16 135/85 95 06/24/20 14:39 36.7 C 110 H 20 163/93 H 96 Laboratory Results Laboratory Results WBC 5.82 K/uL (4.8-10.8) 06/24/20 16:13 RBC 4.56 M/uL (4.7-6.1) L 06/24/20 16:13 Hgb 13.6 g/dL (14.0-18.0) L 06/24/20 16:13 Hct 39.1 % (42-52) L 06/24/20 16:13 MCV 85.7 fL (80-100) 06/24/20 16:13 MCH 29.8 pg (25-34) 06/24/20 16:13 MCHC 34.8 g/dL (32-36) 06/24/20 16:13 RDW Std Deviation 48.4 fL (36.4-46.3) H 06/24/20 16:13 RDW Coeff of Samir 15.4 % (11.5-14.5) H 06/24/20 16:13 Plt Count 422 K/uL (130-400) H 06/24/20 16:13 MPV 9.3 fL (7.4-10.4) 06/24/20 16:13 Immature Gran % (Auto) 2.1 % 06/24/20 16:13 Neut % (Auto) 54.5 % 06/24/20 16:13 Lymph % (Auto) 21.5 % 06/24/20 16:13 O'Brien % (Auto) 17.4 % 06/24/20 16:13 Eos % (Auto) 3.1 % 06/24/20 16:13 Baso % (Auto) 1.4 % 06/24/20 16:13 Neut # (Auto) 3.18 K/uL (1.4-6.5) 06/24/20 16:13 Lymph # (Auto) 1.25 K/uL (1.2-3.4) 06/24/20 16:13 O'Brien # (Auto) 1.01 K/uL (0.11-0.59) H 06/24/20 16:13 Eos # (Auto) 0.18 K/uL (0-0.5) 06/24/20 16:13 Baso # (Auto) 0.08 K/uL (0-0.2) 06/24/20 16:13 Immature Gran # (Auto) 0.12 K/uL (0.00-0.02) H 06/24/20 16:13 PT 9.8 Seconds (9.0-12.0) 06/24/20 16:13 INR 1.0 (0.9-1.1) 06/24/20 16:13 APTT 26.6 Seconds (21.0-31.0) 06/24/20 16:13 PTT Ratio 1.0 06/24/20 16:13 Sodium 133 mmol/L (136-145) L 06/24/20 16:13 Potassium 3.5 mmol/L (3.5-5.1) 06/24/20 16:13 Chloride 99 mmol/L (98-107) 06/24/20 16:13 Carbon Dioxide 27 mmol/L (21-32) 06/24/20 16:13 Anion Gap 7.0 (3-11) 06/24/20 16:13 BUN 13 mg/dl (7-18) 06/24/20 16:13 Creatinine 1.22 mg/dl (0.6-1.4) 06/24/20 16:13 Est Cr Clr Drug Dosing 80.6 ml/min 06/24/20 16:13 Est GFR ( Amer) 81.3 06/24/20 16:13 Est GFR (Non-Af Amer) 70.2 06/24/20 16:13 BUN/Creatinine Ratio 10.3 (10-20) 06/24/20 16:13 Glucose 193 mg/dl (70-99) H 06/24/20 16:13 Calcium 8.8 mg/dl (8.5-10.1) 06/24/20 16:13 Magnesium 2.5 mg/dl (1.8-2.4) H 06/24/20 16:13 Total Bilirubin 13.5 mg/dl (0.2-1) H 06/24/20 16:13 Direct Bilirubin 10.8 mg/dl (0-0.2) H 06/24/20 16:13 AST 47 U/L (15-37) H 06/24/20 16:13 ALT 196 U/L (12-78) H 06/24/20 16:13 Alkaline Phosphatase 394 U/L (45-117) H 06/24/20 16:13 Total Creatine Kinase 68 U/L (39-308) 06/24/20 16:13 Troponin I < 0.015 ng/ml (0-0.045) 06/24/20 16:13 Total Protein 7.0 gm/dl (6.4-8.2) 06/24/20 16:13 Albumin 2.6 gm/dl (3.4-5.0) L 06/24/20 16:13 Globulin 4.4 gm/dl (2.5-4.0) H 06/24/20 16:13 Albumin/Globulin Ratio 0.6 (0.9-2) L 06/24/20 16:13 Lipase 927 U/L (73-393) H 06/24/20 16:13 TSH 1.640 uIu/ml (0.300-4.500) 06/24/20 16:13 Acetaminophen ug/ml (10-30) 06/24/20 16:13 COVID-19 Eval Order Covid19 IDNow [facility] 06/24/20 19:46 Hep Bs Antigen Neg (Neg) 06/24/20 16:13 Hepatitis C Antibody Neg (Neg) 06/24/20 16:13 Monoscreen Negative (Negative) 06/24/20 16:13 Impressions Abdomen/Pelvis CT 06/24/20 15:44 CT OF THE ABDOMEN AND PELVIS WITH CONTRAST CLINICAL HISTORY: Jaundice. COMPARISON STUDY: CT of the abdomen and pelvis May 28, 2020. TECHNIQUE: Following IV administration of 89 mL of Optiray, axial images of the abdomen and pelvis were obtained from the lung bases to the proximal femurs. Im ages were reviewed in the axial, sagittal, and coronal planes. IV contrast was administered without complication. Automated exposure control was utilized for the study. A dose lowering technique was utilized adhering to the principles of ALARA. CT DOSE: 1248.82 mGy.cm FINDINGS: Ground glass opacities within the lower lungs have improved since CT of May 28, 2020. Hepatic steatosis is noted. No hepatic lesions are identified. There is no biliary ductal dilatation. There are gallstones within the gallbladder. There is no evidence for acute cholecystitis. No pancreatic ductal dilatation is present. No pancreatic lesion is noted. There is apparent slight fullness of the pancreas when compared to CT of May 28, 2020. No peripancreatic infiltration is noted. The spleen, adrenal glands and right kidney are normal with the exception of borderline splenomegaly which is unchanged. Left renal calculi are noted. There is no ureteral calculi or hydronephrosis. There is no evidence for a bowel obstruction. The caliber and wall thickness of small and large bowel are normal. The appendix is normal. The prostate is moderately enlarged. No acute fracture or suspicious lesion is identified within the visualized skeletal structures. Major vasculature is patent. IMPRESSION: 1. Hepatic steatosis. No biliary or pancreatic ductal dilatation. Slight prominence of the pancreas when compared to CT of May 28, 2020. Correlation with serum lipase is recommended. No pancreatic mass identified. 2. Cholelithiasis. No evidence for acute cholecystitis. 3. Left-sided nephrolithiasis. No ureteral calculi or hydronephrosis. 4. No bowel obstruction. Normal appendix. No bowel wall thickening. 5. Interval improvement in groundglass opacities within the lower lungs since CT of May 28, 2020. ACT 112: Negative or not required by law. Electronically signed by: Scooter Reynolds M.D. 06/24/2020 6:29 PM Chest X-Ray 06/24/20 15:44 XR chest 1V portable CLINICAL HISTORY: weakness COMPARISON STUDY: Chest radiograph June 17, 2020. FINDINGS: Lung volumes are diminished. This is unchanged. Multifocal bilateral airspace opacities are noted. Right perihilar opacity has slightly progressed. Cardiomediastinal silhouette is stable. There is no pneumothorax or pleural effusion. IMPRESSION: Progression of bilateral airspace opacities consistent with multifocal pneumonia. ACT 112: Negative or not required by law. Electronically signed by: Scooter Reynolds M.D. 06/24/2020 4:13 PM Diagnostic Findings MRCP initial read: No biliary dilatation. No choledocholithiasis. Contracted state of gallbladder. No pericholecystic inflammatory changes. Subcentimeter cystic foci along the main pancreatic duct, potential sidebranch IPMN. Bibasilar atelectasis and or infiltrate. EKG as per my interpretation: Rate 80, NSR, normal axis, incomplete RBBB, T wave abnormalities inferior leads, LVH
[2020-06-24 20:17] LABS: Appearance Urine Clear (Clear); Blood Urine Negative (Negative); Color Urine Dark Yellow; Glucose Urine UA Negative (Negative); Ketones Urine Negative (Negative); Leukocyte Esterase Urine Negative (Negative); Nitrite Urine Negative (Negative); Protein Urine Negative (Negative); Specific Gravity Urine 1.019 (1.000-1.030); Urobilinogen Urine Negative (Negative)
--- NOTE | 2020-06-24 20:36 | History & Physical Report ---
Date of Service June 24, 2020 History of Present Illness Primary Care Provider: NO PCP Allergies Allergy/AdvReac Type Severity Reaction Status Date / Time No Known Allergies Allergy Verified 06/17/20 13:26 Home Medications Medication Instructions Recorded Confirmed Type albuterol sulfate [Ventolin HFA] 2 puff INHALATION QIDR PRN #1 g 06/02/20 0 06/24/20 Rx benzonatate [Tessalon Perles] 200 mg PO TID PRN #30 cap 06/02/20 06/24/20 Rx calcium carbonate-vitamin D3 1,250 mg PO BID #10 tab 06/02/20 06/24/20 Rx [Os-Molina 500 + D3] dextromethorphan-guaifenesin 10 ml PO Q6H PRN #250 ml 06/02/20 06/24/20 Rx [Robitussin Cough-Chest Bryce DM] guaifenesin [Mucinex] 1,200 mg PO Q12 #20 tab 06/02/20 06/24/20 Rx fluticasone propionate 50 1 spray INTRANASAL DAILY #9.9 g 06/17/20 06/24/20 Rx mcg/actuation nasal spray,suspension Past Med/Surg History Medical History Epistaxis History of COVID-19 Social History Smoking Status: Never smoker Hx Alcohol Use: No Hx Substance Use: No Preferred Language: Danish Communication Ability: Effective Beliefs That Will Affect Care: None Current Living Situation: Family Feels Safe at Home: Yes Assistive Devices: None Results & Data Results & Data ([facility]) Vital Signs (Past 12 Hours) Vital Signs Temp Pulse Pulse Resp BP BP Pulse Ox 06/24/20 19:45 73 14 132/89 94 06/24/20 19:42 67 16 126/95 94 06/24/20 17:48 83 18 133/90 94 06/24/20 17:30 77 17 133/90 94 06/24/20 17:00 83 16 145/93 H 95 06/24/20 16:59 81 15 97 06/24/20 16:30 79 16 132/83 97 06/24/20 16:24 81 85 16 135/85 95 06/24/20 14:39 36.7 C 110 H 20 163/93 H 96 Laboratory Results Laboratory Results WBC 5.82 K/uL (4.8-10.8) 06/24/20 16:13 RBC 4.56 M/uL (4.7-6.1) L 06/24/20 16:13 Hgb 13.6 g/dL (14.0-18.0) L 06/24/20 16:13 Hct 39.1 % (42-52) L 06/24/20 16:13 MCV 85.7 fL (80-100) 06/24/20 16:13 MCH 29.8 pg (25-34) 06/24/20 16:13 MCHC 34.8 g/dL (32-36) 06/24/20 16:13 RDW Std Deviation 48.4 fL (36.4-46.3) H 06/24/20 16:13 RDW Coeff of Samir 15.4 % (11.5-14.5) H 06/24/20 16:13 Plt Count 422 K/uL (130-400) H 06/24/20 16:13 MPV 9.3 fL (7.4-10.4) 06/24/20 16:13 Immature Gran % (Auto) 2.1 % 06/24/20 16:13 Neut % (Auto) 54.5 % 06/24/20 16:13 Lymph % (Auto) 21.5 % 06/24/20 16:13 Rich % (Auto) 17.4 % 06/24/20 16:13 Eos % (Auto) 3.1 % 06/24/20 16:13 Baso % (Auto) 1.4 % 06/24/20 16:13 Neut # (Auto) 3.18 K/uL (1.4-6.5) 06/24/20 16:13 Lymph # (Auto) 1.25 K/uL (1.2-3.4) 06/24/20 16:13 Rich # (Auto) 1.01 K/uL (0.11-0.59) H 06/24/20 16:13 Eos # (Auto) 0.18 K/uL (0-0.5) 06/24/20 16:13 Baso # (Auto) 0.08 K/uL (0-0.2) 06/24/20 16:13 Immature Gran # (Auto) 0.12 K/uL (0.00-0.02) H 06/24/20 16:13 PT 9.8 Seconds (9.0-12.0) 06/24/20 16:13 INR 1.0 (0.9-1.1) 06/24/20 16:13 APTT 26.6 Seconds (21.0-31.0) 06/24/20 16:13 PTT Ratio 1.0 06/24/20 16:13 Sodium 133 mmol/L (136-145) L 06/24/20 16:13 Potassium 3.5 mmol/L (3.5-5.1) 06/24/20 16:13 Chloride 99 mmol/L (98-107) 06/24/20 16:13 Carbon Dioxide 27 mmol/L (21-32) 06/24/20 16:13 Anion Gap 7.0 (3-11) 06/24/20 16:13 BUN 13 mg/dl (7-18) 06/24/20 16:13 Creatinine 1.22 mg/dl (0.6-1.4) 06/24/20 16:13 Est Cr Clr Drug Dosing 80.6 ml/min 06/24/20 16:13 Est GFR ( Amer) 81.3 06/24/20 16:13 Est GFR (Non-Af Amer) 70.2 06/24/20 16:13 BUN/Creatinine Ratio 10.3 (10-20) 06/24/20 16:13 Glucose 193 mg/dl (70-99) H 06/24/20 16:13 Calcium 8.8 mg/dl (8.5-10.1) 06/24/20 16:13 Magnesium 2.5 mg/dl (1.8-2.4) H 06/24/20 16:13 Total Bilirubin 13.5 mg/dl (0.2-1) H 06/24/20 16:13 Direct Bilirubin 10.8 mg/dl (0-0.2) H 06/24/20 16:13 AST 47 U/L (15-37) H 06/24/20 16:13 ALT 196 U/L (12-78) H 06/24/20 16:13 Alkaline Phosphatase 394 U/L (45-117) H 06/24/20 16:13 Total Creatine Kinase 68 U/L (39-308) 06/24/20 16:13 Troponin I < 0.015 ng/ml (0-0.045) 06/24/20 16:13 Total Protein 7.0 gm/dl (6.4-8.2) 06/24/20 16:13 Albumin 2.6 gm/dl (3.4-5.0) L 06/24/20 16:13 Globulin 4.4 gm/dl (2.5-4.0) H 06/24/20 16:13 Albumin/Globulin Ratio 0.6 (0.9-2) L 06/24/20 16:13 Lipase 927 U/L (73-393) H 06/24/20 16:13 TSH 1.640 uIu/ml (0.300-4.500) 06/24/20 16:13 Acetaminophen ug/ml (10-30) 06/24/20 16:13 COVID-19 Eval Order Covid19 IDNow [facility] 06/24/20 19:46 Hep Bs Antigen Neg (Neg) 06/24/20 16:13 Hepatitis C Antibody Neg (Neg) 06/24/20 16:13 Monoscreen Negative (Negative) 06/24/20 16:13 SARS-CoV-2, RNA, NAAT NEGATIVE (NEGATIVE) 06/24/20 19:46 Impressions Abdomen/Pelvis CT 06/24/20 15:44 CT OF THE ABDOMEN AND PELVIS WITH CONTRAST CLINICAL HISTORY: Jaundice. COMPARISON STUDY: CT of the abdomen and pelvis May 28, 2020. TECHNIQUE: Following IV administration of 89 mL of Optiray, axial images of the abdomen and pelvis were obtained from the lung bases to the proximal femurs. Images were reviewed in the axial, sagittal, and coronal planes. IV contrast was administered without complication. Automated exposure control was utilized for the study. A dose lowering technique was utilized adhering to the principles of ALARA. CT DOSE: 1248.82 mGy.cm FINDINGS: Ground glass opacities within the lower lungs have improved since CT of May 28, 2020. Hepatic steatosis is noted. No hepatic lesions are identified. There is no biliary ductal dilatation. There are gallstones within the gallbladder. There is no evidence for acute cholecystitis. No pancreatic ductal dilatation is present. No pancreatic lesion is noted. There is apparent slight fullness of the pancreas when compared to CT of May 28, 2020. No peripancreatic infiltration is noted. The spleen, adrenal glands and right kidney are normal with the exception of borderline splenomegaly which is unchanged. Left renal calculi are noted. There is no ureteral calculi or hydronephrosis. There is no evidence for a bowel obstruction. The caliber and wall thickness of small and large bowel are normal. The appendix is normal. The prostate is moderately enlarged. No acute fracture or suspicious lesion is identified within the visualized skeletal structures. Major vasculature is patent. IMPRESSION: 1. Hepatic steatosis. No biliary or pancreatic ductal dilatation. Slight prominence of the pancreas when compared to CT of May 28, 2020. Correlation with serum lipase is recommended. No pancreatic mass identified. 2. Cholelithiasis. No evidence for acute cholecystitis. 3. Left-sided nephrolithiasis. No ureteral calculi or hydronephrosis. 4. No bowel obstruction. Normal appendix. No bowel wall thickening. 5. Interval improvement in groundglass opacities within the lower lungs since CT of May 28, 2020. ACT 112: Negative or not required by law. Electronically signed by: Scooter Reynolds M.D. 06/24/2020 6:29 PM Chest X-Ray 06/24/20 15:44 XR chest 1V portable CLINICAL HISTORY: weakness COMPARISON STUDY: Chest radiograph June 17, 2020. FINDINGS: Lung volumes are diminished. This is unchanged. Multifocal bilateral airspace opacities are noted. Right perihilar opacity has slightly progressed. Cardiomediastinal silhouette is stable. There is no pneumothorax or pleural effusion. IMPRESSION: Progression of bilateral airspace opacities consistent with multifocal pneumonia. ACT 112: Negative or not required by law. Electronically signed by: Scooter Reynolds M.D. 06/24/2020 4:13 PM
[2020-06-24 20:58] LABS: Bilirubin Urine 3+ (Negative)
[2020-06-24] MEDS ORDERED: ACETAMINOPHEN 325 MG TAB PO PRN (22:16)
[2020-06-24] MEDS ORDERED: GLUCOSE 10 TABS/TUBE PO PRN (22:16)
[2020-06-24] MEDS ORDERED: BENZONATATE 100 MG CAPSULE PO PRN (22:16)
[2020-06-24] MEDS ORDERED: DEXTROSE 50% 50 ML SYRINGE IV PRN (22:16)
[2020-06-24] MEDS ORDERED: LORazepam 0.5 MG/1 ML VIAL IV PRN (22:16)
[2020-06-24] MEDS ORDERED: PROMETHAZINE HCL 12.5 MG in SODIUM CHLORIDE 0.9% 50 ML IV PRN (22:16)
[2020-06-24] MEDS ORDERED: traMADol HCL 50 MG TABLET PO PRN (22:16)
[2020-06-24] MEDS ORDERED: ALBUTEROL HFA 8 GM INHALER INH PRN (22:16)
[2020-06-24] MEDS ORDERED: GLUCAGON FOR INJ 1 MG VIAL SQ PRN (22:16)
[2020-06-24] MEDS ORDERED: CARBOHYDRATES FOR HYPOGLYCEMIA PO PRN (22:16)
[2020-06-24] MEDS ORDERED: GLUCOSE 40% GEL 15 GM TUBE PO PRN (22:16)
[2020-06-24] MEDS ORDERED: POTASSIUM CHLORIDE 40 MEQ in SODIUM CHLORIDE 0.9% 1000ML 1,000 ML IV ONE (23:00)
[2020-06-24] MEDS: INSULIN ASPART 100 UNITS/ML 3 ML PEN SC SCH (23:31)
[2020-06-25] MEDS ORDERED: LACTATED RINGER'S 1,000 ML IV ONE (00:27)
[2020-06-25 06:10] LABS: Basophils # (auto) 0.11 K/uL (0-0.2); Eosinophils # (auto) 0.31 K/uL (0-0.5); Eosinophils % (auto) 5.8 %; Hematocrit (blood only) 34.6 % (42-52); Hemoglobin 12.2 g/dL (14.0-18.0); Immature Granulocytes % (auto) 1.9 %; Lymphocytes # (auto) 1.19 K/uL (1.2-3.4); Lymphocytes % (auto) 22.1 %; Mean Corpuscular Hemoglobin 30.1 pg (25-34); Mean Corpuscular Hgb Conc 35.3 g/dL (32-36); Mean Corpuscular Volume 85.4 fL (80-100); Mean Platelet Volume 9.5 fL (7.4-10.4); Monocytes # (auto) 0.99 K/uL (0.11-0.59); Monocytes % (auto) 18.4 %; Neutrophils # (auto) 2.69 K/uL (1.4-6.5); Neutrophils % (auto) 49.8 %; Platelet Count 438 K/uL (130-400); RDW Coefficient of Variation 15.8 % (11.5-14.5); RDW Standard Deviation 49.5 fL (36.4-46.3); Red Blood Count 4.05 M/uL (4.7-6.1); White Blood Count 5.39 K/uL (4.8-10.8)
[2020-06-25 06:24] LABS: Prothrombin Time 9.9 Seconds (9.0-12.0)
[2020-06-25 06:54] LABS: Albumin Level 2.2 gm/dl (3.4-5.0); BUN Creatinine Ratio 9.5 (10-20); Bilirubin Direct 9.8 mg/dl (0-0.2); Bilirubin,Total 12.6 mg/dl (0.2-1); Calcium 8.4 mg/dl (8.5-10.1); Est GFR (African American) 107.3; Est GFR (Non-African American) 92.6; Potassium 3.5 mmol/L (3.5-5.1)
--- NOTE | 2020-06-25 07:32 | Magnetic Resonance Report ---
MRCP CLINICAL HISTORY: Jaundice. COMPARISON STUDY: Abdominal CT dated 06/24/2020. TECHNIQUE: Abdominal MRCP is performed utilizing various T1 and T2-weighted sequences in the axial an d coronal planes. IV contrast was not administered for this examination. 3-D reformats are created an d assessed. FINDINGS: The gallbladder is contracted and not well evaluated. Small calcified gallstones seen by CT are not w ell-visualized by MRI. No surrounding inflammation is identified. There is no intra or extrahepatic b iliary ductal dilatation. The common bile duct measures up to 2.5 mm in diameter. There are no intral uminal filling defects to indicate choledocholithiasis. The pancreatic duct is normal in caliber. The re are at least 5 tiny sidebranch IPMNs which measure up to 3 mm. The unenhanced liver, spleen, pancreas, adrenal glands, and kidneys are otherwise grossly unremarkabl e. There is no abdominal ascites. The abdominal aorta is normal in caliber. No bowel obstruction is i dentified. No adenopathy is seen. Atelectasis is seen at the lung bases. No pleural effusion is ident ified. IMPRESSION: 1. The gallbladder is contracted and not well evaluated. 2. There is no intra or extrahepatic biliary ductal dilatation and no choledocholithiasis. Dictated: 06/25/2020 7:10 AM Transcribed: 06/25/2020 7:29 AM Aleksandra [id number] [email or web address] Electronically signed by: Gino Brown M.D. 06/25/2020 7:31 AM
[2020-06-25] MEDS: FLUTICASONE PROPIONATE NA SPR 16 GM BTL SCH (08:16)
[2020-06-25] MEDS: ENOXAPARIN INJ 40 MG/0.4 ML SYR SQ SCH (08:17)
[2020-06-25] MEDS: INSULIN ASPART 100 UNITS/ML 3 ML PEN SC SCH ×4 (08:59→20:43)
--- NOTE | 2020-06-25 14:05 | Gastrointestinal Consultation ---
Date of Consultation June 25, 2020 Assessment & Plan (1) Jaundice: (2) Abnormal liver enzymes: (3) History of COVID-19: suspect jaundice and hyperbilirubinemia from covid induced cholangiopathy vs. less likely remdesivir causing DILI. Appears to be improving slowly, no alarm signs including fever, abd pains, etc. No evidence of biliary obstruction or dilation on MRCP. Recs: -start ursodiol 500 mg BID -trend LFTs and INR daily -diet as tolerated supportive care Thank you for allowing me to participate in the care of this patient History of Present Illness Attending Physician: Sophia Bills, DO 49 yo male with hx covid 19 s/p remdesivir tx 1 month ago, here with painless jaundice and pruritus. Denies abd pains or other symptoms. Imaging including MRCP shows no evidence of biliary ductal dilation. Does have hepatic steatosis. Direct hyperbilirubinemia is noted. labs reviewed. Allergies Allergy/AdvReac Type Severity Reaction Status Date / Time No Known Allergies Allergy Verified 06/17/20 13:26 Home Medications Medication Instructions Recorded Confirmed Type albuterol sulfate [Ventolin HFA] 2 puff INHALATION QIDR PRN #1 g 06/02/20 06/24/20 Rx benzonatate [Tessalon Perles] 200 mg PO TID PRN #30 cap 06/02/20 06/24/20 Rx calcium carbonate-vitamin D3 1,250 mg PO BID #10 tab 06/02/20 06/24/20 Rx [Os-Molina 500 + D3] dextromethorphan-guaifenesin 10 ml PO Q6H PRN #250 ml 06/02/20 06/24/20 Rx [Robitussin Cough-Chest Bryce DM] guaifenesin [Mucinex] 1,200 mg PO Q12 #20 tab 06/02/20 06/24/20 Rx fluticasone propionate 50 1 spray INTRANASAL DAILY #9.9 g 06/17/20 06/24/20 Rx mcg/actuation nasal spray,suspension Patient History Medical History Epistaxis History of COVID-19 Social History Smoking Status: Never smoker Second Hand Exposure: Yes; Do You Dip or Chew Tobacco: No; Hx Alcohol Use: No Hx Substance Use: No Preferred Language: [place] Zealander Communication Ability: Effective Ventilating Engineer Required: No Beliefs That Will Affect Care: None Current Living Situation: Parent Current Living Situation Comment: Father lives with patient Other Information That Helps Us Care for You: No Feels Safe at Home: Yes Safety Concerns: Feels Safe At This Time Assistive Devices: Oxygen - at Night Assistive Devices Comment: 2L at night Review of Systems Constitutional: no fever, no chills and no weight loss Eyes: as per Subjective / HPI Ear, Nose, Mouth, Throat: as per Subjective / HPI Respiratory: no dyspnea and no dyspnea on exertion Cardiovascular: no chest pain and no palpitations Gastrointestinal: as per Subjective / HPI Musculoskeletal: no joint pain and no swelling Integumentary: no rash and no lesions Neurologic: no numbness and no paresthesia Psychiatric: no depression and no anxiety Endocrine: no fatigue Hematologic / Lymphatic: no easy bleeding and no easy bruising Physical Exam Constitutional: WD/WN, vitals as above Eyes: EOM intact bilaterally Neck: normal visual inspection Respiratory: normal respiratory effort, lungs clear to auscultation Cardiovascular: RRR, no murmur, no edema Gastrointestinal (Abdomen): Inspection/Auscultation: abdomen normal to inspection; abdomen not distended Percussion/Palpation: abdomen soft; abdomen nontender and no hepatosplenomegaly Musculoskeletal: Extremities: no cyanosis Gait: normal gait Skin: no rashes, warm and dry Neurologic: moves all extremities Psychiatric: A+Ox3, euthymic affect Results & Data ([facility]) Vital Signs (Past 12 Hours) Vital Signs Temp Pulse Resp BP Pulse Ox 06/25/20 08:20 36.6 C 65 16 123/83 95 PG Care Time/CCT Total # of Minutes Spent Total Time Spent with Patient: Total time spent is greater than 50% in coordination of care (as documented) at patient's floor/unit and/or counseling patient: Coding Level of Care Code 34538 Inpt Consult Level 4 Diagnoses Jaundice R17 Abnormal liver enzymes R74.8 History of COVID-19 Z86.16
--- NOTE | 2020-06-25 15:26 | Hospitalist Progress Note ---
Date of Service June 25, 2020 Assessment & Plan (1) Abnormal liver enzymes: Elevated LFTs to 47/196 with alk phos 394 up from recent admission in May (, alk phos 60) History fatty liver disease Recent confinement for COVID-19 pneumonia status post Remdesivir Rx (05/2020) questioning remdesivir toxicity vs cholangiopathy 2/2 covid. (2) Hyperbilirubinemia: patient did present with h/o epigastric tenderness and somewhat of a pancreatitis picture prior to admission for covid, and at time of this admission in May his lipase was 1300. Current workup for elevated bilirubin reveals normal MRCP. GI following. INR normal, Cont to monitor labwork and watch trend. Consider EUS as next step in workup. (3) Jaundice: plan as above. (4) Morbid obesity: (5) Hepatic steatosis: (6) DMII (diabetes mellitus, type 2): diet controlled, A1C. Cont correction factor and carb coverage. (7) DVT prophylaxis: SCDs/ambulation Full Code Dispo-uncertain at this time, to home when cleared Sophia Bills DO [facility] Hospitalist Admission and Anticipated Discharge Date Admission Date: June 24, 2020 Subjective 49-year-old man status post Covid infection 3 weeks ago presents with hyperbili rubinemia and painless jaundice He is eating well some questionable early satiety reported. Patient denies any fevers, pain, chills Regular BMs MRCP negative Review of Systems Review of Systems: All systems reviewed & are unremarkable except as noted in Subjective Physical Exam Physical Exam: CONSTITUTIONAL: obese, vitals as above, generally well- appearing, +jaundiced. EYES: normal conjunctivae, +scleral icterus ENT: external ear and nose normal, MMM RESPIRATORY: clear to auscultation bilaterally, no crackles, rales or wheezes, normal respiratory effort CARDIOVASCULAR: regular rate and rhythm, S1 and 2 heard without murmurs, gallops or rubs, no JVD, no peripheral edema GASTROINTESTINAL: soft, nontender, nondistended, MUSCULOSKELETAL: strength 5/5 throughout, head is normocephalic and atraumatic SKIN: warm and dry NEUROLOGIC: CN 2-12 grossly intact, no sensory deficit, normal cognition, normal speech PSYCHIATRIC: alert cooperative and oriented to person, place and time. Results & Data Results & Data ([facility]) Vital Signs (Past 12 Hours) Vital Signs Temp Pulse Pulse Resp BP Pulse Ox 06/25/20 15:12 36.9 C 62 18 125/81 96 06/25/20 08:20 36.6 C 65 16 123/83 95 Laboratory Results Short CBC 06/24/20 06/25/20 Range/Units 16:13 05:39 WBC 5.82 5.39 (4.8-10.8) K/uL Hgb 13.6 L 12.2 L (14.0-18.0) g/dL Hct 39.1 L 34.6 L (42-52) % Plt Count 422 H 438 H (130-400) K/uL BMP 06/24/20 06/25/20 16:13 05:39 Sodium 133 L 136 Potassium 3.5 3.5 Chloride 99 102 Carbon Dioxide 27 29 BUN 13 9 Creatinine 1.22 0.97 Glucose 193 H 133 H Calcium 8.8 8.4 L Cardiac Enzymes 06/24/20 Range/Units 16:13 Total Creatine Kinase 68 (39-308) U/L Troponin I < 0.015 (0-0.045) ng/ml Liver Function 06/24/20 06/24/20 06/25/20 Range/Units 16:13 16:13 05:39 Total Bilirubin 13.5 H 12.6 H (0.2-1) mg/dl Direct Bilirubin 10.8 H 9.8 H (0-0.2) mg/dl AST 47 H 42 H (15-37) U/L ALT 196 H 149 H (12-78) U/L Alkaline Phosphatase 394 H 333 H (45-117) U/L Albumin 2.6 L 2.2 L (3.4-5.0) gm/dl Urine 06/24/20 Range/Units 19:45 Urine Color Dark Yellow Urine Appearance Clear (Clear) Urine pH 7.0 (4.5-7.5) Ur Specific [place] 1.019 (1.000-1.030) Urine Protein Negative (Negative) Urine Glucose (UA) Negative (Negative) Medications Administered Current Inpatient Medications Acetaminophen (Acetaminophen 325 Mg Tab) 325 mg PO Q6H PRN PRN Reason: Mild Pain Stop: 07/24/20 22:15 Albuterol (Albuterol Hfa 8 Gm Inhaler) 2 puffs INH QIDR PRN PRN Reason: shortness of breath or wheezin Stop: 07/24/20 22:15 Benzonatate (Benzonatate 100 Mg Capsule) 200 mg PO TID PRN PRN Reason: cough Stop: 07/24/20 22:15 Dextrose (Dextrose 50% 50 Ml Syringe) 25 - 50 ml IV UD PRN; Protocol PRN Reason: Hypoglycemia Protocol Stop: 07/24/20 22:15 Enoxaparin Sodium (Enoxaparin Inj 40 Mg/0.4 Ml Syr) 40 mg SQ QAM [facility] Stop: 07/25/20 08:59 Last Admin: 06/25/20 08:17 Dose: 40 mg Documented by: Fluticasone Propionate (Fluticasone Propionate Na Spr 16 Gm Btl) 1 sprays NA DAILY [facility] Stop: 07/25/20 08:59 Last Admin: 06/25/20 08:16 Dose: 1 sprays Documented by: Glucagon (Glucagon For Inj 1 Mg Vial) 1 mg SQ UD PRN; Protocol PRN Reason: Hypoglycemia Protocol Stop: 07/24/20 22:15 Glucose (Glucose 10 Tabs/Tube) 4 - 8 tabs PO UD PRN; Protocol PRN Reason: Hypoglycemia Protocol Stop: 07/24/20 22:15 Glucose (Glucose 40% Gel 15 Gm Tube) 15 - 30 gm PO UD PRN; Protocol PRN Reason: Hypoglycemia Protocol Stop: 07/24/20 22:15 Lorazepam (Ativan) 0.5 mg in 1 mls @ 1 mls/min IV Q4H PRN PRN Reason: Anxiety/Agitation Stop: 07/24/20 22:15 Promethazine HCl 12.5 mg/ (Sodium Chloride) 50.5 mls @ 202 mls/hr IV Q6H PRN PRN Reason: Nausea And Vomiting Stop: 07/24/20 22:15 Insulin Aspart (Insulin Aspart 100 Units/Ml 3 Ml Pen) 0 units SC ACHS [facility] Stop: 07/24/20 22:15 Last Admin: 06/25/20 13:20 Dose: 5 units Documented by: Miscellaneous (Carbohydrates For Hypoglycemia ) 15 - 30 gm PO UD PRN PRN Reason: Hypoglycemia Protocol Stop: 07/24/20 22:15 Tramadol HCl (Tramadol Hcl 50 Mg Tablet) 25 - 50 mg PO Q4H PRN PRN Reason: Pain Stop: 07/24/20 22:15 Ursodiol (Ursodiol 300 Mg Cap) 600 mg PO BID OANH Stop: 07/25/20 20:59
[2020-06-25] MEDS: ursodioL 300 MG CAP PO SCH (17:27)
[2020-06-25] MEDS ORDERED: ursodioL 300 MG CAP PO SCH (21:00)
[2020-06-26] MEDS ORDERED: MELATONIN 3 MG TAB PO PRN (01:16)
[2020-06-26] MEDS ORDERED: LORATADINE 10 MG TAB PO ONE (01:16)
[2020-06-26] MEDS: ursodioL 300 MG CAP PO SCH ×2 (05:42→17:37)
[2020-06-26 06:28] LABS: Albumin Level 2.2 gm/dl (3.4-5.0); Bilirubin,Total 13.1 mg/dl (0.2-1); Total Protein 6.1 gm/dl (6.4-8.2)
[2020-06-26 06:30] LABS: Bilirubin Direct 10.9 mg/dl (0-0.2)
[2020-06-26] MEDS: ENOXAPARIN INJ 40 MG/0.4 ML SYR SQ SCH (08:08)
[2020-06-26] MEDS: FLUTICASONE PROPIONATE NA SPR 16 GM BTL SCH (08:08)
[2020-06-26] MEDS: INSULIN ASPART 100 UNITS/ML 3 ML PEN SC SCH ×4 (08:53→21:25)
[2020-06-26 20:34] LABS: Hepatitis A Antibody IgM NON-REACTIVE (NON-REACTIVE); Hepatitis B Core Antibody IgM NON-REACTIVE (NON-REACTIVE)
--- NOTE | 2020-06-26 22:00 | Hospitalist Progress Note ---
Date of Service June 26, 2020 Assessment & Plan (1) Hyperbilirubinemia: levels remain elevated around 12-13. INR normal. LFTs slightly increased. Question covid cholangiopathy with recent infection. No evidence of obstruction or dilation of CBD on MRCP. Cont to monitor labwork and watch trend. Consider EUS as next step in workup. (2) Abnormal liver enzymes: (3) Jaundice: (4) Morbid obesity: (5) Hepatic steatosis: (6) DVT prophylaxis: SCDs/ambulation Full Code Dispo-uncertain at this time, to home when cleared [facility] Admission and Anticipated Discharge Date Admission Date: June 24, 2020 Subjective 49-year-old man status post Covid infection 3 weeks ago presents with h yperbilirubinemia and painless jaundice He is eating well Bilirubin level has not changed and is slightly higher Patient denies any fevers, pain, chills Home irregular bowel movements, denies acholic stools Review of Systems Review of Systems: All systems reviewed & are unremarkable except as noted in Subjective Physical Exam Physical Exam: CONSTITUTIONAL: obese, vitals as above, generally well- appearing, +jaundiced. EYES: normal conjunctivae, +scleral icterus ENT: external ear and nose normal, MMM RESPIRATORY: clear to auscultation bilaterally, no crackles, rales or wheezes, normal respiratory effort CARDIOVASCULAR: regular rate and rhythm, S1 and 2 heard without murmurs, gallops or rubs, no JVD, no peripheral edema GASTROINTESTINAL: soft, nontender, nondistended, MUSCULOSKELETAL: strength 5/5 throughout, head is normocephalic and atraumatic SKIN: warm and dry NEUROLOGIC: CN 2-12 grossly intact, no sensory deficit, normal cognition, normal speech PSYCHIATRIC: alert cooperative and oriented to person, place and time. Results & Data Results & Data ([facility]) Vital Signs (Past 12 Hours) Vital Signs Temp Pulse Resp BP Pulse Ox 06/26/20 14:55 36.7 C 78 16 129/84 97 Laboratory Results Liver Function 06/26/20 Range/Units 05:12 Total Bilirubin 13.1 H (0.2-1) mg/dl Direct Bilirubin 10.9 H (0-0.2) mg/dl AST 39 H (15-37) U/L ALT 129 H (12-78) U/L Alkaline Phosphatase 318 H (45-117) U/L Albumin 2.2 L (3.4-5.0) gm/dl Medications Administered Current Inpatient Medications Acetaminophen (Acetaminophen 325 Mg Tab) 325 mg PO Q6H PRN PRN Reason: Mild Pain Stop: 07/24/20 22:15 Albuterol (Albuterol Hfa 8 Gm Inhaler) 2 puffs INH QIDR PRN PRN Reason: shortness of breath or wheezin Stop: 07/24/20 22:15 Benzonatate (Benzonatate 100 Mg Capsule) 200 mg PO TID PRN PRN Reason: cough Stop: 07/24/20 22:15 Dextrose (Dextrose 50% 50 Ml Syringe) 25 - 50 ml IV UD PRN; Protocol PRN Reason: Hypoglycemia Protocol Stop: 07/24/20 22:15 Enoxaparin Sodium (Enoxaparin Inj 40 Mg/0.4 Ml Syr) 40 mg SQ QAM [facility] Stop: 07/25/20 08:59 Last Admin: 06/26/20 08:08 Dose: 40 mg Documented by: Fluticasone Propionate (Fluticasone Propionate Na Spr 16 Gm Btl) 1 sprays NA DAILY [facility] Stop: 07/25/20 08:59 Last Admin: 06/26/20 08:08 Dose: Not Given Documented by: Glucagon (Glucagon For Inj 1 Mg Vial) 1 mg SQ UD PRN; Protocol PRN Reason: Hypoglycemia Protocol Stop: 07/24/20 22:15 Glucose (Glucose 10 Tabs/Tube) 4 - 8 tabs PO UD PRN; Protocol PRN Reason: Hypoglycemia Protocol Stop: 07/24/20 22:15 Glucose (Glucose 40% Gel 15 Gm Tube) 15 - 30 gm PO UD PRN; Protocol PRN Reason: Hypoglycemia Protocol Stop: 07/24/20 22:15 Lorazepam (Ativan) 0.5 mg in 1 mls @ 1 mls/min IV Q4H PRN PRN Reason: Anxiety/Agitation Stop: 07/24/20 22:15 Promethazine HCl 12.5 mg/ (Sodium Chloride) 50.5 mls @ 202 mls/hr IV Q6H PRN PRN Reason: Nausea And Vomiting Stop: 07/24/20 22:15 Insulin Aspart (Insulin Aspart 100 Units/Ml 3 Ml Pen) 0 units SC ACHS [facility] Stop: 07/24/20 22:15 Last Admin: 06/26/20 21:25 Dose: Not Given Documented by: Melatonin (Melatonin 3 Mg Tab) 3 mg PO HS PRN PRN Reason: Sleep Stop: 07/26/20 01:15 Last Admin: 06/26/20 01:44 Dose: 3 mg Documented by: Miscellaneous (Carbohydrates For Hypoglycemia ) 15 - 30 gm PO UD PRN PRN Reason: Hypoglycemia Protocol Stop: 07/24/20 22:15 Tramadol HCl (Tramadol Hcl 50 Mg Tablet) 25 - 50 mg PO Q4H PRN PRN Reason: Pain Stop: 07/24/20 22:15 Ursodiol (Ursodiol 300 Mg Cap) 600 mg PO Q12H O[facility] Stop: 07/25/20 16:59 Last Admin: 06/26/20 17:37 Dose: 600 mg Documented by:
[2020-06-27] MEDS: ursodioL 300 MG CAP PO SCH ×2 (05:35→18:19)
[2020-06-27 06:36] LABS: Prothrombin Time 9.8 Seconds (9.0-12.0)
[2020-06-27 07:07] LABS: Albumin Level 2.3 gm/dl (3.4-5.0); Bilirubin,Total 14.4 mg/dl (0.2-1); Est GFR (African American) 102.2; Est GFR (Non-African American) 88.2; Total Protein 6.4 gm/dl (6.4-8.2)
[2020-06-27] MEDS: ENOXAPARIN INJ 40 MG/0.4 ML SYR SQ SCH (09:03)
[2020-06-27] MEDS: FLUTICASONE PROPIONATE NA SPR 16 GM BTL SCH (09:03)
[2020-06-27] MEDS: INSULIN ASPART 100 UNITS/ML 3 ML PEN SC SCH ×4 (09:04→21:34)
--- NOTE | 2020-06-27 10:59 | Gastroenterology Progress Note ---
Date of Service June 27, 2020 Assessment & Plan (1) Jaundice: Pt is a 49 male admitted w painless jaundice. Hx of COVID infection end of May. Hep a/b/c negative. DDX: AIH, DILI, Covid induced cholangiopathy - Obtain autoimmune, viral serologies - Repeat u/s abd to re-eval bile duct (+ cholelithiasis w elevated Lipase). Though noted MRCP w/o biliary ductal dilation or choledocholithiasis - Plan to DC Ursodiol tomorrow if no improvement of Tbili - Plan for EUS w liver biopsy tomorrow by Dr. Gaspar Admission and Anticipated Discharge Date Admission Date: June 24, 2020 Supervising Physician Co-Signing Physician Notes I have seen and examined the patient and discussed the management with JYOTSNA Henry. GI consulted for elevated lfts, history of covid in 05/22 treated with remdesivir, now with cholestatic lft elevation as of check in 06/22 with previous normal lft's in . He is clinically asymptomatic without reports of fevers, chills, belly pain or use of other supplements. Etiology: ? dili from remdesivir versus covid cholangiopathy Will also check aih serologies. lat MRI showing no evidence of cbd stone, gallst ones present on imaging. Repeat abd kenya to ensure no biliary contribution to lft bump. Started on ursodiol by mngi over the weekend for coverage without significant change in lft's. NPO after midnite, potential eus-lb tomorrow to further evaluate reason for elevated lft's. He ideally should avoid alcohol or other herbal supplements (his current vitamins and acv should be fine to take) but would avoid any other herbal supplements. Subjective Pt feeling itchy, otherwise denies abd pain, n/v, bowel habit changes Review of Systems Review of Systems: All systems reviewed & are unremarkable except as noted in HPI & below Physical Exam Constitutional: WD/WN, vitals as above well groomed, cooperative and comfortable Eyes: + scleral abnormality (icteric sclera), PERRL and EOM intact bilaterally ENMT: external ear and nose normal, oropharynx normal Respiratory: normal respiratory effort, lungs clear to auscultation Cardiovascular: RRR, no murmur, no edema Gastrointestinal (Abdomen): normal bowel sounds, soft, nontender, no hepatosplenomegaly Skin: no rashes, warm and dry + jaundice Neurologic: Motor/Sensory: no asterixis Psychiatric: A+Ox3, euthymic affect Lymphatic: no lymphedema Results & Data ([facility]) Vital Signs (Past 12 Hours) Vital Signs Temp Pulse Resp BP Pulse Ox 06/27/20 07:25 36.6 C 69 17 126/84 96
--- NOTE | 2020-06-27 11:51 | Anesthesiology Consultation ---
Date of Service June 27, 2020 Assessment & Plan (1) Encounter for pre-operative examination: Chart Review Chart Review: Acceptable Risk for Surgery and Patient NOT seen in Pre Admission Testing Consults Requested none Teaching & Discussion medicine is following History Surgery Operation Date: 06/28/20 07:00 Proposed Procedures p Endoscopic Ultrasonography Pascual - Jackson Gaspar DO Height/Weight Height: 5 ft 3 in Weight: 104.3 kg Allergies Allergy/AdvReac Type Severity Reaction Status Date / Time No Known Allergies Allergy Verified 06/17/20 13:26 Medications Home Medications Medication Instructions Recorded Confirmed Last Taken albuterol sulfate [Ventolin HFA] 2 puff INHALATION QIDR PRN #1 g 06/02/20 06/24/20 Unknown benzonatate [Tessalon Perles] 200 mg PO TID PRN #30 cap 06/02/20 06/24/20 Unknown calcium carbonate-vitamin D3 1,250 mg PO BID #10 tab 06/02/20 06/24/20 Unknown [Os-[place] 500 + D3] dextromethorphan-guaifenesin 10 ml PO Q6H PRN #250 ml 06/02/20 06/24/20 Unknown [Robitussin Cough-Chest Bryce DM] guaifenesin [Mucinex] 1,200 mg PO Q12 #20 tab 06/02/20 06/24/20 Unknown fluticasone propionate 50 1 spray INTRANASAL DAILY #9.9 g 06/17/20 06/24/20 Unknown mcg/actuation nasal spray,suspension Active Medications Generic Name Dose Route Start Last Admin Trade Name Freq PRN Reason Stop Dose Admin Enoxaparin Sodium 40 mg 06/25/20 09:00 06/27/20 09:03 Enoxaparin Inj 40 Mg/0.4 Ml Syr SQ 07/25/20 08:59 40 mg QAM OANH Administration Fluticasone Propionate 1 sprays 06/25/20 09:00 06/27/20 09:03 Fluticasone Propionate Na Spr 16 Gm Btl NA 07/25/20 08:59 1 sprays DAILY OANH Administration Insulin Aspart 0 units 06/24/20 22:16 06/27/20 09:04 Insulin Aspart 100 Units/Ml 3 Ml Pen SC 07/24/20 22:15 4 units ACHS OAN[facility] Administration Melatonin 3 mg 06/26/20 01:16 06/26/20 01:44 Melatonin 3 Mg Tab PO 07/26/20 01:15 3 mg HS PRN Administration Sleep Ursodiol 600 mg 06/25/20 17:00 06/27/20 05:35 Ursodiol 300 Mg Cap PO 07/25/20 16:59 600 mg Q12H OANH Administration Past Medical History Medical History Abnormal liver enzymes Allergic rhinitis DMII (diabetes mellitus, type 2) Epistaxis Hepatic steatosis History of COVID-19 Morbid obesity Nocturnal hypoxia Social History Smoking Status: Never smoker Do You Dip or Chew Tobacco: No Hx Alcohol Use: No Hx Substance Use: No Physical Exam Vital Signs Last Vital Signs Temp 36.6 C 06/27/20 07:25 Pulse 69 06/27/20 07:25 Resp 17 06/27/20 07:25 BP 126/84 06/27/20 07:25 Pulse Ox 96 06/27/20 07:25 Testing Laboratory Results 06/25/20 05:39 06/27/20 05:38 PT 9.8 Seconds (9.0-12.0) 06/27/20 05:38 INR 1.0 (0.9-1.1) 06/27/20 05:38 APTT 26.6 Seconds (21.0-31.0) 06/24/20 16:13 Urine Color Dark Yellow 06/24/20 19:45 Urine Appearance Clear (Clear) 06/24/20 19:45 Urine pH 7.0 (4.5-7.5) 06/24/20 19:[address] [place] 1.019 (1.000-1.030) 06/24/20 19:45 Urine Protein Negative (Negative) 06/24/20 19:45 Urine Glucose (UA) Negative (Negative) 06/24/20 19:45 Urine Ketones Negative (Negative) 06/24/20 19:45 Urine Nitrite Negative (Negative) 06/24/20 19:45 Ur Leukocyte Esterase Negative (Negative) 06/24/20 19:45 06/27/20 06/27/20 11:47 08:16 POC Glucose 165 H 123 H Electrocardiogram Date: 06/24/20 Findings: + NSR @ (79), + LVH, + RBBB (incomplete) and + T wave inversion (inferior) Chest X-Ray Date: 06/24/20 XR chest 1V portable CLINICAL HISTORY: weakness COMPARISON STUDY: Chest radiograph June 17, 2020. FINDINGS: Lung volumes are diminished. This is unchanged. Multifocal bilateral airspace opacities are noted. Right perihilar opacity has slightly progressed. Cardiomediastinal silhouette is stable. There is no pneumothorax or pleural effusion. IMPRESSION: Progression of bilateral airspace opacities consistent with multifocal pneumonia. ACT 112: Negative or not required by law. Electronically signed by: Scooter Reynolds M.D. 06/24/2020 4:13 PM Dictated: 06/24/20 1612Transcribed: 06/24/20 1612
[2020-06-27 12:17] LABS: Ferritin 1483.7 ng/ml (8-388)
[2020-06-27 13:36] LABS: Bilirubin Direct 11.5 mg/dl (0-0.2)
--- NOTE | 2020-06-27 14:16 | Hospitalist Progress Note ---
Date of Service June 27, 2020 Assessment & Plan (1) Abnormal liver enzymes: Elevated LFTs to 47/196 with alk phos 394 up from recent admission in May (, alk phos 60) History fatty liver disease Recent confinement for COVID-19 pneumonia status post Remdesivir Rx (05/2020) questioning remdesivir toxicity vs cholangiopathy 2/2 covid. (2) Hyperbilirubinemia: Presented with epigastric tenderness. Lipase of 1300 and previous admission in May for pancreatitis. Currently found to have elevated bilirubin. MRCP is normal. Panel is negative. Appreciate gastroenterology input. Alpha 1 antitrypsin, antimitochondrial, anti-smooth muscle antibody, and ceruloplasmin levels pending. Total bilirubin: 13.5>>>12.6>>>13.1>>>14.4 Plan to go for EUS with liver biopsy tomorrow. (3) Jaundice: plan as above. (4) Morbid obesity: (5) Hepatic steatosis: (6) DMII (diabetes mellitus, type 2): diet controlled, A1C. Cont correction factor and carb coverage. (7) DVT prophylaxis: SCDs/ambulation Full Code Dispo-uncertain at this time, to home when cleared Admission and Anticipated Discharge Date Admission Date: June 24, 2020 Subjective Patient is doing okay this morning. Does report a mild headache. Review of system is negative. Denies any chest pain, shortness of breath, abdominal pain, diarrhea or dysuria. Review of Systems Review of Systems: All systems reviewed & are unremarkable except as noted in HPI & below Physical Exam Physical Exam: General: A&Ox3, jaudince HENT: NCAT, MMM, EOMI Eyes: inceterus Neck: Supple, normal range of motion CVS: normal rate and rhythm Resp: b/l good breath sonds Abdomen: Soft, ND/NT, +BS Extremities: No c/c/e Neuro: face symmetric, no focal deficit MSK: no joint swelling/erythema Results & Data Results & Data ([facility]) Vital Signs (Past 12 Hours) Vital Signs Temp Pulse Resp BP Pulse Ox 06/27/20 07:25 36.6 C 69 17 126/84 96
[2020-06-28] MEDS: ursodioL 300 MG CAP PO SCH ×2 (04:57→17:57)
[2020-06-28 07:20] LABS: Albumin Level 2.2 gm/dl (3.4-5.0); Bilirubin,Total 14.3 mg/dl (0.2-1); Total Protein 6.1 gm/dl (6.4-8.2)
[2020-06-28] MEDS: INSULIN ASPART 100 UNITS/ML 3 ML PEN SC SCH ×4 (07:55→21:04)
[2020-06-28] MEDS: FLUTICASONE PROPIONATE NA SPR 16 GM BTL SCH (07:56)
[2020-06-28] MEDS: ENOXAPARIN INJ 40 MG/0.4 ML SYR SQ SCH (07:56)
[2020-06-28] MEDS ORDERED: ACETAMINOPHEN 500 MG TAB PO PRN (09:33)
--- NOTE | 2020-06-28 09:58 | Ultrasound Report ---
US biopsy liver CLINICAL HISTORY: Jaundice, abnormal liver function tests. COMPARISON STUDY: CT scan dated 06/24/2020 FINDINGS: A timeout was performed. The risks of the procedure were explained the patient informed consent was obtained. The patient was prepped in sterile fashion. The skin was anesthetized 1% lidocaine. Utilizing ultrasound guidance, 2 18-gauge 2 cm core samples were obtained from the right lobe of the liver. A postprocedure ultrasound revealed no perihepatic hemorrhage. The patient was sent to the floor for postprocedure observation. IMPRESSION: 1. Successful ultrasound-guided 18-gauge core biopsy of the right lobe the liver ACT 112: Negative or not required by law. Electronically signed by: Herb Mejía M.D. 06/28/2020 9:57 AM
[2020-06-28 09:59] LABS: Bilirubin Direct 11.6 mg/dl (0-0.2)
--- NOTE | 2020-06-28 12:22 | Electrocardiogram Report ---
Test Reason : Blood Pressure : / mmHG Vent. Rate : 066 BPM Atrial Rate : 066 BPM P-R Int : 156 ms QRS Dur : 120 ms QT Int : 448 ms P-R-T Axes : 044 -11 012 degrees QTc Int : 469 ms Normal sinus rhythm Non-specific intra-ventricular conduction delay Borderline ECG When compared with ECG of 24-JUN-2020 16:24, No significant change was found Confirmed by Jeremie Apple ([id number]) on 06/28/2020 12:22:33 PM Referred By: REFERRED SELF Confirmed By:Jeremie Apple
--- NOTE | 2020-06-28 12:50 | Hospitalist Progress Note ---
Date of Service June 28, 2020 Assessment & Plan (1) Abnormal liver enzymes: Elevated LFTs to 47/196 with alk phos 394 up from recent admission in May (, alk phos 60) History fatty liver disease Recent confinement for COVID-19 pneumonia status post Remdesivir Rx (05/2020) questioning remdesivir toxicity vs cholangiopathy 2/2 covid. (2) Hyperbilirubinemia: Presented with epigastric tenderness. Lipase of 1300 and previous admission in May for pancreatitis. Currently found to have elevated bilirubin. MRCP is normal. Acute hepatitis panel is negative. Appreciate gastroenterology input. Alpha 1 antitrypsin, antimitochondrial, anti-smooth muscle antibody, and ceruloplasmin levels pending. Total bilirubin: 13.5>>>12.6>>>13.1>>>14.4>>>14.3 S/P EUS and liver biopsy today. (3) Jaundice: plan as above. (4) Morbid obesity: (5) Hepatic steatosis: (6) DMII (diabetes mellitus, type 2): diet controlled, A1C. Cont correction factor and carb coverage. (7) DVT prophylaxis: SCDs/ambulation Full Code Dispo-uncertain at this time, to home when cleared Admission and Anticipated Discharge Date Admission Date: June 24, 2020 Subjective Patient sitting comfortably on the recliner. Just arrived back from the liver biopsy. Denies any chest pain, shortness of breath, nausea or vomiting. Does report some discomfort at the right upper quadrant biopsy site. Review of Systems Review of Systems: All systems reviewed & are unremarkable except as noted in HPI & below Physical Exam Physical Exam: General: A&Ox3, jaudince HENT: NCAT, MMM, EOMI Eyes: inceterus Neck: Supple, normal range of motion CVS: normal rate and rhythm Resp: b/l good breath sonds Abdomen: Soft, ND/NT, +BS Extremities: No c/c/e Neuro: face symmetric, no focal deficit MSK: no joint swelling/erythema Results & Data Results & Data ([facility]) Vital Signs (Past 12 Hours) Vital Signs Temp Pulse Resp BP BP Pulse Ox 06/28/20 11:40 36.7 C 81 16 117/78 96 06/28/20 11:14 36.7 C 75 16 129/82 94 06/28/20 10:43 36.6 C 87 18 134/88 95 06/28/20 10:00 66 16 120/85 98 06/28/20 09:48 36.6 C 66 16 138/70 97 06/28/20 07:15 36.6 C 65 16 140/86 95
[2020-06-29] MEDS: ursodioL 300 MG CAP PO SCH (05:35)
[2020-06-29] MEDS: ENOXAPARIN INJ 40 MG/0.4 ML SYR SQ SCH (07:50)
[2020-06-29] MEDS: FLUTICASONE PROPIONATE NA SPR 16 GM BTL SCH (07:51)
[2020-06-29] MEDS: INSULIN ASPART 100 UNITS/ML 3 ML PEN SC SCH ×2 (08:31→12:32)
[2020-06-29] MEDS ORDERED: diphenhydrAMINE Capsule 25 MG CAP PO PRN (13:34)
[2020-06-29 14:02] LABS: Anti Mitochondrial Antibody NEGATIVE (NEGATIVE); Smooth Muscle Antibody NEGATIVE (NEGATIVE)
[2020-06-29 14:29] LABS: Albumin Level 2.5 gm/dl (3.4-5.0); Bilirubin,Total 17.2 mg/dl (0.2-1)
--- NOTE | 2020-06-29 14:46 | Discharge Summary ---
Date of Service June 29, 2020 Admission HPI Per Admitting Provider History obtained from patient and records. Medical history significant for hepatic steatosis, recent COVID-19 pneumonia, DM2 diet-controlled. Recent confinement last month for acute hypoxemic respiratory failure secondary to severe COVID-19 pneumonia. Patient completed Decadron and Remdesivir course. Discharged on home O2 at night due to episodic hypoxemia. Cough and shortness of breath symptoms better as per patient. Episode of epistaxis. A week ago patient noted increased pruritus all over. Urine noted to be dark and stools yellow in color. No abdominal pain, no fever, no chills. Patient denies inordinate Tylenol intake. No recent EtOH intake as per patient. Patient directed to the ER by PCP. 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, currently unemployed Principal Diagnosis Jaundice ABNORMAL LIVER FUNCTION -high bilirubin/high liver enzyme Status post liver biopsy Discharge Data Allergies Allergy/AdvReac Type Severity Reaction Status Date / Time No Known Allergies Allergy Verified 06/17/20 13:26 Consultations 06/24/20 19:30 ED Decision to Admit Stat 06/24/20 22:16 Consult Gastroenterology Routine Procedures Performed Operation Date: 06/28/20 07:00 <No data on this case meets the specified criteria> Ordered Studies 06/24/20 15:44 CT abd pelvis IV con only Stat 06/24/20 20:35 MR MRCP Urgent 06/28/20 09:00 US biopsy liver Routine Hospital Course (1) Abnormal liver enzymes: Elevated LFTs to 47/196 with alk phos 394 up from recent admission in [facility] (51/95, alk phos 60) History fatty liver disease Recent confinement for COVID-19 pneumonia status post Remdesivir Rx (05/2020) questioning remdesivir toxicity vs cholangiopathy 2/2 covid. Underwent liver biopsy, report pending Lab today shows persistently elevated bilirubin 17, with mild improvement of AST ALT Discussed with gastroenterology Dr. Hanley Patient currently remains constant completely asymptomatic, no GI symptoms of nausea vomiting abdominal pain Okay to discharge him home Repeat lab: Comprehensive metabolic panel with next follow-up visit with family physician 1 week follow-up with GI, liver biopsy results will be discussed on next visit (2) Hyperbilirubinemia: Presented with epigastric tenderness-pain that has completely resolved, no abdominal pain tolerating diet . MRCP is normal. Acute hepatitis panel is negative. Appreciate gastroenterology input. Alpha 1 antitrypsin, antimitochondrial, anti-smooth muscle antibody, and ceruloplasmin levels pending-ordered results will be sent to patient's family physician and gastroenterology Total bilirubin: Remains elevated 13.5>>>12.6>>>13.1>>>14.4>>>14.3-17 Does not have any complaint of confusion, lethargy, awake and alert independent in ambulation, Does have intense pruritus possible secondary to biliary salt deposition Added ursodiol As needed Benadryl cream, and a p.o. Benadryl at bedtime and every 8 hours as needed (3) Jaundice: Discussed as above (4) Morbid obesity: (5) Hepatic steatosis: (6) DMII (diabetes mellitus, type 2): diet controlled, (7) DVT prophylaxis: SCDs/ambulation Full Code Patient is discharged home today Total Time Total Time Spent Total Time Spent (In Minutes): 40 minutes Total Time Includes: Examination of the Patient, Discharge Planning and Medication Reconciliation Discharge Plan Discharge Items Patient Disposition: Home - Self-Care Reason For Visit: JAUNDICE Discharge Diagnosis: Jaundice ABNORMAL LIVER FUNCTION -high bilirubin/high liver enzyme Status post liver biopsy Condition on Discharge: Fair Activity: Resume your previous activity Non-emergency contact: Primary Care Provider Call non-emergency contact if: you have any medication questions Follow-up/Referrals: Riley Hanley MD [Physician] - (Follow-up with Dr. Hanley in 1 week please call to schedule an appointment) Jonnie Triplett MD [Outside Practitioners] - (Date & Time 07/04/2020 3:00 PM Provider Ella Butler MD Department Internal Medicine [facility] ) Diet: Carb Consistent or DM2 and Heart Healthy Addtl Attending Provider Instructions: Please take all medications as instructed on discharge list below. Lab work : comprehensive metabolic panel with next doctors visit Your family physician or a GI doctor will follow up with you regarding liver biopsy result Do not take Tylenol , avoid taking any herbal supplements -some of the ingredie nt can cause worsening of your liver function Follow-up with Dr. Hanley in 1 week please call to schedule an appointment Please call if you have any questions or problems. You can reach a [facility] hospitalist on duty at [facility] 24 hours a day by calling [phone] Pending Studies at Discharge: No Stand-Alone Forms: My [facility], Smoking Cessation Medications and DC Order Prescriptions: New ursodiol 300 mg Capsule 600 mg PO Q12H 60 Days Qty: 240 RF: 0 diphenhydramine HCl [Benadryl] 25 mg Capsule 25 mg PO Q8 PRN (Reason: itching) Qty: 0 RF: 0 Anti-Itch(diphenhyd) with Zinc 2-0.1 % Cream 1 applic EXT Q8 PRN (Reason: itching) Qty: 1 RF: 0 Continued fluticasone propionate [Allergy Relief (fluticasone)] 50 mcg/actuation spray ,suspension 1 spray intranasal DAILY Qty: 9.9 RF: 1 albuterol sulfate [Ventolin HFA] 90 mcg/actuation Hfa Aerosol Inhaler 2 puff inhalation QIDR PRN (Reason: shortness of breath or wheezing) Qty: 1 RF: 0 benzonatate [Tessalon Perles] 100 mg Capsule 200 mg PO TID PRN (Reason: cough) Qty: 30 RF: 0 Robitussin Cough-Chest Bryce DM 5-100 mg/5 mL Liquid 10 ml PO Q6H PRN (Reason: cough) Qty: 250 RF: 0 calcium carbonate-vitamin D3 [Os-Molina 500 + D3] 500mg (1,250mg) -600 unit Tablet 1,250 mg PO BID Qty: 10 RF: 0 guaifenesin [Mucinex] 600 mg Tablet Extended Release 12hr 1,200 mg PO Q12 Qty: 20 RF: 0 Discharge Orders: Discharge Order (Routine); Ordered 06/29/20 Ordered By: Melinda Mills Admission Data Admit Date/Time: 06/24/20 20:39 Attending Provider: Melinda Mills Admit Provider: Kevan Lucero Primary Care Provider: PCP,NO Other Providers: Kevan Lucero ; Riley Hanley ; Agnieszka Sylvester Other Interventions: Discharge Summary Assessment (RN) Last Done: 06/29/20 13:55
[2020-06-29 14:52] LABS: Bilirubin Direct 13.6 mg/dl (0-0.2)
[2020-07-01 07:12] LABS: Alpha 1 Antitrypsin 225 mg/dL (83-199); Anti Nuclear Antibody Screen NEGATIVE (NEGATIVE); CMV IgG Antibody <0.60 U/mL; CMV IgM Antibody <30.00 AU/mL; Ceruloplasmin 44 mg/dL (18-36); Herpes Simplex Ab IgG-1 <0.90 index; Herpes Simplex Ab IgG-2 <0.90 index; Parvovirus IgG 3.2 (<0.9); Parvovirus IgM 0.2 (<0.9)
== END 2020-06-29 15:55 | disposition home or self-care (01) | DRG 445 ==
LOC: ED 14:28 → 3E 20:39 → SUATTDRO 20:39 → 3E 21:42